=== PATIENT | male | born 1945 | race Caucasian/White ===

== ENCOUNTER 2022-06-23 04:38 | Inpatient (IN) | payer MEDICARE, OTHER ==
[2022-06-23 06:16] LABS: ALT (SGPT) Less than 6 U/L (8-55); AST (SGOT) 18 U/L (5-34); Alkaline Phosphatase 119 U/L (40-110); Anion Gap 12 mmol/L (10-20); BUN (Urea Nitrogen) 22 mg/dL (8.4-25.7); Bilirubin, Total 0.7 mg/dL (0.2-1.2); Calc. Creatinine Clearance 0 mL/min (70-130); Calcium 9.5 mg/dL (7.8-10.44); Carbon Dioxide 26 mmol/L (23-31); Chloride 108 mmol/L (98-107); Estimated GFR 70; Globulin 2.6 g/dL (2.4-3.5); Glucose 122 mg/dL (83-110); Protein, Total 6.6 g/dL (5.8-8.1); Sodium 142 mmol/L (136-145)
[2022-06-23 06:24] LABS: #Eosinphils 0.1 10x3/uL (0.0-0.5); #Monocytes 0.7 10x3/uL (0.0-1.1); #Neutrophils 3.9 10x3/uL (1.5-8.4); %Basophils 0.5 % (0.0-2.0); %Lymphocytes 23.3 % (18.0-47.0); %Monocytes 10.7 % (0.0-10.0); Hemoglobin 10.5 g/dL (13.5-17.5); Mean Corpuscular HGB CONC 32.2 g/dL (32.0-36.0); Mean Corpuscular Hemoglobin 30.1 pg (27.0-33.0); Mean Corpuscular Volume 93.4 fl (81.2-95.1); Platelet Count 130 10x3/uL (150-450); Platelet Morphology Comment Appears Decreased; Red Blood Cell (RBC) Count 3.49 10x6/uL (4.32-5.72); White Blood Cell (WBC) Count 6.1 10x3/uL (3.5-10.5)
[2022-06-23 06:39] LABS: Bilirubin Neg (Negative); Blood, Urine 250 (Negative); Clarity Slightly Cloudy (Clear); Glucose, Urine (Dipstick) Normal (Negative); Ketone, Urine 5 mg/dL (Negative); Leukocyte 25 (Negative); Nitrite Negative (Negative); Protein, Urine (Dipstick) 30 mg/dl (Neg-Trace); Urobilinogen Normal mg/dL (Less than 2)
[2022-06-23 06:41] LABS: SARS-CoV-2 NAA Rapid Test Not Detected (NotDetected)
[2022-06-23 06:44] LABS: RBC/HPF 21-50 HPF (0-3)
[2022-06-23 06:45] LABS: Bacteria/HPF 1+ HPF (None Seen); Calcium Oxalate Crystals 1+ HPF (None Seen); Squamous Epithelial 0-3 HPF (0-3); Transitional Epithelial 0-3 HPF (None Seen); WBC/HPF 0-3 HPF (0-3)
[2022-06-23] MEDS ORDERED: Acetaminophen 650 MG Suppository PR PRN (11:26)
[2022-06-23] MEDS ORDERED: Ondansetron ODT 4 MG TAB PO PRN (11:26)
[2022-06-23] MEDS ORDERED: Ondansetron PF 4 MG/2 ML Vial IVP PRN (11:26)
[2022-06-23] MEDS ORDERED: Senokot S 8.6-50 MG TAB PO PRN (11:26)
[2022-06-23 15:08] VITALS: BMI 18.3
[2022-06-23] MEDS: Carbidopa/Levodopa 10-100 mg Tablet PO SCH ×3 (15:15→22:08)
[2022-06-23] MEDS: Amantadine HCl 100 mg Capsule PO SCH ×2 (15:15→22:09)
[2022-06-23] MEDS: Atorvastatin Calcium 20 MG TAB PO SCH (22:09)
[2022-06-23] MEDS: Tamsulosin HCl 0.4 MG CAP PO SCH (22:10)
[2022-06-23] MEDS: Aspirin 81 mg Enteric Coated Tablet PO SCH (22:10)
[2022-06-23] MEDS: Acetaminophen 325 MG TAB PO PRN (22:19)
[2022-06-24 04:33] LABS: Anion Gap 12 mmol/L (10-20); BUN (Urea Nitrogen) 25 mg/dL (8.4-25.7); Calc. Creatinine Clearance 54 mL/min (70-130); Calcium 9.3 mg/dL (7.8-10.44); Carbon Dioxide 23 mmol/L (23-31); Chloride 109 mmol/L (98-107); Estimated GFR 83; Glucose 96 mg/dL (83-110); Potassium 3.6 mmol/L (3.5-5.1); Sodium 140 mmol/L (136-145)
[2022-06-24 04:35] LABS: #Eosinphils 0.1 10x3/uL (0.0-0.5); #Monocytes 0.8 10x3/uL (0.0-1.1); %Basophils 0.4 % (0.0-2.0); %Lymphocytes 16.8 % (18.0-47.0); %Monocytes 10.8 % (0.0-10.0); %Neutrophils 70.7 % (40.0-75.0); Hemoglobin 10.7 g/dL (13.5-17.5); Mean Corpuscular HGB CONC 32.6 g/dL (32.0-36.0); Mean Corpuscular Hemoglobin 30.5 pg (27.0-33.0); Mean Corpuscular Volume 93.4 fl (81.2-95.1); Mean Platelet Volume 10.3 fl (7.4-10.4); Platelet Count 169 10x3/uL (150-450); RBC Distribution Width 13.7 % (11.5-14.5); Red Blood Cell (RBC) Count 3.51 10x6/uL (4.32-5.72)
[2022-06-24] MEDS: Aspirin 81 mg Enteric Coated Tablet PO SCH ×2 (08:39→21:16)
[2022-06-24] MEDS: Finasteride 5 MG TAB PO SCH (08:39)
[2022-06-24] MEDS: Amantadine HCl 100 mg Capsule PO SCH ×3 (08:40→21:16)
[2022-06-24] MEDS: Carbidopa/Levodopa 10-100 mg Tablet PO SCH ×4 (08:40→21:16)
[2022-06-24] MEDS: Entacapone 200 mg Tablet PO SCH ×3 (12:47→21:16)
[2022-06-24] MEDS: Acetaminophen 325 MG TAB PO PRN (19:40)
[2022-06-24] MEDS: Atorvastatin Calcium 20 MG TAB PO SCH (21:16)
[2022-06-24] MEDS: Tamsulosin HCl 0.4 MG CAP PO SCH (21:16)
[2022-06-25 05:08] LABS: #Eosinphils 0.1 10x3/uL (0.0-0.5); #Monocytes 0.8 10x3/uL (0.0-1.1); #Neutrophils 4.1 10x3/uL (1.5-8.4); %Basophils 0.5 % (0.0-2.0); %Lymphocytes 21.1 % (18.0-47.0); %Monocytes 11.7 % (0.0-10.0); %Neutrophils 64.5 % (40.0-75.0); Hemoglobin 10.9 g/dL (13.5-17.5); Mean Corpuscular HGB CONC 32.4 g/dL (32.0-36.0); Mean Corpuscular Hemoglobin 30.3 pg (27.0-33.0); Mean Corpuscular Volume 93.3 fl (81.2-95.1); Mean Platelet Volume 10.4 fl (7.4-10.4); Platelet Count 161 10x3/uL (150-450); RBC Distribution Width 13.6 % (11.5-14.5); White Blood Cell (WBC) Count 6.4 10x3/uL (3.5-10.5)
[2022-06-25 05:09] LABS: Anion Gap 12 mmol/L (10-20); BUN (Urea Nitrogen) 22 mg/dL (8.4-25.7); Calc. Creatinine Clearance 55 mL/min (70-130); Calcium 9.2 mg/dL (7.8-10.44); Carbon Dioxide 24 mmol/L (23-31); Chloride 106 mmol/L (98-107); Estimated GFR 84; Glucose 113 mg/dL (83-110); Potassium 3.6 mmol/L (3.5-5.1); Sodium 138 mmol/L (136-145)
[2022-06-25] MEDS: Aspirin 81 mg Enteric Coated Tablet PO SCH ×2 (07:58→21:24)
[2022-06-25] MEDS: Amantadine HCl 100 mg Capsule PO SCH ×3 (07:58→21:24)
[2022-06-25] MEDS: Finasteride 5 MG TAB PO SCH (07:58)
[2022-06-25] MEDS: Entacapone 200 mg Tablet PO SCH ×4 (09:53→21:24)
[2022-06-25] MEDS: Carbidopa/Levodopa 10-100 mg Tablet PO SCH ×4 (09:53→21:24)
[2022-06-25] MEDS: Atorvastatin Calcium 20 MG TAB PO SCH (21:24)
[2022-06-25] MEDS: Tamsulosin HCl 0.4 MG CAP PO SCH (21:24)
[2022-06-25] MEDS: Acetaminophen 325 MG TAB PO PRN ×2 (22:34→22:42)
[2022-06-25] MEDS ORDERED: Lactated Ringer's 1,000 ML IV SCH (23:00)
[2022-06-25 23:12] LABS: #Monocytes 0.1 10x3/uL (0.0-1.1); #Neutrophils 5.9 10x3/uL (1.5-8.4); %Basophils 0.2 % (0.0-2.0); %Eosinophils 0.5 % (0.0-6.0); %Lymphocytes 4.9 % (18.0-47.0); %Monocytes 0.9 % (0.0-10.0); %Neutrophils 93.2 % (40.0-75.0); Hemoglobin 11.2 g/dL (13.5-17.5); Mean Corpuscular HGB CONC 33.4 g/dL (32.0-36.0); Mean Corpuscular Hemoglobin 30.6 pg (27.0-33.0); Mean Corpuscular Volume 91.5 fl (81.2-95.1); Mean Platelet Volume 10.1 fl (7.4-10.4); Platelet Count 156 10x3/uL (150-450); RBC Distribution Width 13.5 % (11.5-14.5); Red Blood Cell (RBC) Count 3.66 10x6/uL (4.32-5.72); White Blood Cell (WBC) Count 6.4 10x3/uL (3.5-10.5)
[2022-06-25 23:26] LABS: ALT (SGPT) 9 U/L (8-55); AST (SGOT) 18 U/L (5-34); Alkaline Phosphatase 113 U/L (40-110); Anion Gap 15 mmol/L (10-20); BUN (Urea Nitrogen) 21 mg/dL (8.4-25.7); Bilirubin, Total 1.2 mg/dL (0.2-1.2); Calc. Creatinine Clearance 41 mL/min (70-130); Calcium 9.4 mg/dL (7.8-10.44); Carbon Dioxide 24 mmol/L (23-31); Chloride 103 mmol/L (98-107); Estimated GFR 60; Globulin 2.8 g/dL (2.4-3.5); Glucose 141 mg/dL (83-110); Magnesium 1.4 mg/dL (1.6-2.6); Potassium 3.6 mmol/L (3.5-5.1); Protein, Total 6.8 g/dL (5.8-8.1); Sodium 138 mmol/L (136-145)
[2022-06-26] MEDS ORDERED: Magnesium 2 GM/50 ML(in water) 2 GM in Premix Bag 1 BAG IVPB SCH (00:15)
[2022-06-26 05:23] LABS: Anion Gap 13 mmol/L (10-20); BUN (Urea Nitrogen) 21 mg/dL (8.4-25.7); Calc. Creatinine Clearance 42 mL/min (70-130); Calcium 9.5 mg/dL (7.8-10.44); Carbon Dioxide 25 mmol/L (23-31); Chloride 104 mmol/L (98-107); Estimated GFR 61; Glucose 158 mg/dL (83-110); Potassium 3.4 mmol/L (3.5-5.1); Sodium 139 mmol/L (136-145)
[2022-06-26 05:25] LABS: #Monocytes 0.8 10x3/uL (0.0-1.1); #Neutrophils 12.7 10x3/uL (1.5-8.4); %Basophils 0.1 % (0.0-2.0); %Eosinophils 0.1 % (0.0-6.0); %Lymphocytes 2.1 % (18.0-47.0); %Monocytes 5.9 % (0.0-10.0); %Neutrophils 90.9 % (40.0-75.0); Hemoglobin 10.7 g/dL (13.5-17.5); Mean Corpuscular HGB CONC 33.3 g/dL (32.0-36.0); Mean Corpuscular Hemoglobin 30.8 pg (27.0-33.0); Mean Corpuscular Volume 92.5 fl (81.2-95.1); Mean Platelet Volume 10.5 fl (7.4-10.4); Platelet Count 172 10x3/uL (150-450); RBC Distribution Width 13.6 % (11.5-14.5); Red Blood Cell (RBC) Count 3.47 10x6/uL (4.32-5.72)
[2022-06-26] MEDS ORDERED: Potassium Chloride 20 MEQ TAB PO SCH (06:00)
[2022-06-26 06:15] LABS: SARS-CoV-2 NAA Rapid Test Not Detected (NotDetected)
[2022-06-26] MEDS: cefTRIAXone\\ROCEPHIN 1 GM in Sodium Chloride 0.9% 100 ML IVPB SCH (07:00)
[2022-06-26 07:39] LABS: Bilirubin Neg (Negative); Blood, Urine 10 (Negative); Clarity Clear (Clear); Glucose, Urine (Dipstick) Normal (Negative); Ketone, Urine Negative (Negative); Leukocyte 100 (Negative); Nitrite Negative (Negative); Protein, Urine (Dipstick) Negative (Neg-Trace); Urobilinogen Normal mg/dL (Less than 2)
[2022-06-26] MEDS ORDERED: Electrolyte Replacement Protocol 1 EACH FS SCH (07:45)
[2022-06-26 08:15] LABS: Bacteria/HPF Rare-Few HPF (None Seen); RBC/HPF 0-3 HPF (0-3); Squamous Epithelial 0-3 HPF (0-3)
[2022-06-26 09:33] LABS: Magnesium 2.1 mg/dL (1.6-2.6)
[2022-06-26] MEDS: Aspirin 81 mg Enteric Coated Tablet PO SCH ×2 (09:44→21:40)
[2022-06-26] MEDS: Entacapone 200 mg Tablet PO SCH ×4 (09:44→21:40)
[2022-06-26] MEDS: Finasteride 5 MG TAB PO SCH (09:44)
[2022-06-26] MEDS: Amantadine HCl 100 mg Capsule PO SCH ×3 (09:44→21:40)
[2022-06-26] MEDS: Carbidopa/Levodopa 10-100 mg Tablet PO SCH ×4 (10:30→21:41)
[2022-06-26] MEDS ORDERED: Vancomycin 1 GM in Premix Bag 1 BAG IVPB SCH (11:15)
[2022-06-26] MEDS ORDERED: Vancomycin HCl 1 GM in Sodium Chloride 0.9% 250 ML 250 ML IVPB SCH (11:30)
[2022-06-26] MEDS: Tamsulosin HCl 0.4 MG CAP PO SCH (21:40)
[2022-06-26] MEDS: Atorvastatin Calcium 20 MG TAB PO SCH (21:40)
[2022-06-27] MEDS ORDERED: Haloperidol Lactate 5 MG/ML VIAL IM SCH (05:15)
[2022-06-27 06:14] LABS: #Monocytes 0.5 10x3/uL (0.0-1.1); #Neutrophils 4.3 10x3/uL (1.5-8.4); %Basophils 0.5 % (0.0-2.0); %Eosinophils 0.7 % (0.0-6.0); %Lymphocytes 11.8 % (18.0-47.0); %Monocytes 8.5 % (0.0-10.0); %Neutrophils 78.1 % (40.0-75.0); Hemoglobin 10.4 g/dL (13.5-17.5); Mean Corpuscular HGB CONC 33.3 g/dL (32.0-36.0); Mean Corpuscular Hemoglobin 30.2 pg (27.0-33.0); Mean Corpuscular Volume 90.7 fl (81.2-95.1); Mean Platelet Volume 10.6 fl (7.4-10.4); Platelet Count 130 10x3/uL (150-450); RBC Distribution Width 13.5 % (11.5-14.5); Red Blood Cell (RBC) Count 3.44 10x6/uL (4.32-5.72); White Blood Cell (WBC) Count 5.5 10x3/uL (3.5-10.5)
[2022-06-27 06:28] LABS: Anion Gap 15 mmol/L (10-20); BUN (Urea Nitrogen) 21 mg/dL (8.4-25.7); Calc. Creatinine Clearance 45 mL/min (70-130); Calcium 9.3 mg/dL (7.8-10.44); Carbon Dioxide 21 mmol/L (23-31); Chloride 106 mmol/L (98-107); Estimated GFR 67; Glucose 102 mg/dL (83-110); Sodium 138 mmol/L (136-145)
[2022-06-27] MEDS: cefTRIAXone\\ROCEPHIN 1 GM in Sodium Chloride 0.9% 100 ML IVPB SCH (06:42)
[2022-06-27] MEDS: Finasteride 5 MG TAB PO SCH (10:44)
[2022-06-27] MEDS: Amantadine HCl 100 mg Capsule PO SCH ×3 (10:44→21:23)
[2022-06-27] MEDS: Aspirin 81 mg Enteric Coated Tablet PO SCH ×2 (10:44→21:23)
[2022-06-27] MEDS: Saccharomyces boulardii 250 MG CAP PO SCH (10:45)
[2022-06-27] MEDS: Entacapone 200 mg Tablet PO SCH ×4 (10:45→21:24)
[2022-06-27] MEDS: Carbidopa/Levodopa 10-100 mg Tablet PO SCH ×4 (11:15→21:23)
[2022-06-27] MEDS ORDERED: Vancomycin HCl 750 MG in Sodium Chloride 0.9% 250 ML 250 ML IVPB SCH (11:30)
[2022-06-27] MEDS: Tamsulosin HCl 0.4 MG CAP PO SCH (21:23)
[2022-06-27] MEDS: Atorvastatin Calcium 20 MG TAB PO SCH (21:23)
[2022-06-28 06:07] LABS: #Eosinphils 0.1 10x3/uL (0.0-0.5); #Monocytes 0.7 10x3/uL (0.0-1.1); #Neutrophils 3.7 10x3/uL (1.5-8.4); %Basophils 0.6 % (0.0-2.0); %Eosinophils 1.7 % (0.0-6.0); %Lymphocytes 17.3 % (18.0-47.0); %Monocytes 12.1 % (0.0-10.0); %Neutrophils 67.9 % (40.0-75.0); Hemoglobin 10.9 g/dL (13.5-17.5); Mean Corpuscular HGB CONC 33.6 g/dL (32.0-36.0); Mean Corpuscular Hemoglobin 30.5 pg (27.0-33.0); Mean Corpuscular Volume 90.8 fl (81.2-95.1); Mean Platelet Volume 11.1 fl (7.4-10.4); Platelet Count 150 10x3/uL (150-450); RBC Distribution Width 13.2 % (11.5-14.5); Red Blood Cell (RBC) Count 3.57 10x6/uL (4.32-5.72); White Blood Cell (WBC) Count 5.4 10x3/uL (3.5-10.5)
[2022-06-28 06:18] LABS: Anion Gap 14 mmol/L (10-20); BUN (Urea Nitrogen) 17 mg/dL (8.4-25.7); Calc. Creatinine Clearance 45 mL/min (70-130); Calcium 9.5 mg/dL (7.8-10.44); Carbon Dioxide 23 mmol/L (23-31); Chloride 107 mmol/L (98-107); Estimated GFR 67; Glucose 101 mg/dL (83-110); Magnesium 1.9 mg/dL (1.6-2.6); Phosphorus 3.5 mg/dL (2.3-4.7); Potassium 3.8 mmol/L (3.5-5.1); Sodium 140 mmol/L (136-145)
[2022-06-28] MEDS: cefTRIAXone\\ROCEPHIN 1 GM in Sodium Chloride 0.9% 100 ML IVPB SCH (06:47)
[2022-06-28] MEDS: Carbidopa/Levodopa 10-100 mg Tablet PO SCH ×4 (09:56→20:59)
[2022-06-28] MEDS: Entacapone 200 mg Tablet PO SCH ×3 (09:57→17:26)
[2022-06-28] MEDS: Amantadine HCl 100 mg Capsule PO SCH ×2 (09:57→17:27)
[2022-06-28] MEDS: Aspirin 81 mg Enteric Coated Tablet PO SCH (09:57)
[2022-06-28] MEDS: Finasteride 5 MG TAB PO SCH (09:57)
[2022-06-28 11:14] LABS: Vancomycin, Trough 5.7 ug/mL
[2022-06-28] MEDS: Saccharomyces boulardii 250 MG CAP PO SCH (11:24)
[2022-06-28] MEDS ORDERED: Magnesium 2 GM/50 ML(in water) 2 GM in Premix Bag 1 BAG IVPB SCH (14:00)
[2022-06-28] MEDS ORDERED: Magnesium Oxide 400 MG TAB PO SCH (17:15)
[2022-06-28] MEDS: Melatonin 3 MG TAB PO SCH (20:59)
[2022-06-28] MEDS: Atorvastatin Calcium 20 MG TAB PO SCH (20:59)
[2022-06-28] MEDS: Tamsulosin HCl 0.4 MG CAP PO SCH (20:59)
[2022-06-29] MEDS: Vancomycin HCl 750 MG in Sodium Chloride 0.9% 250 ML 250 ML IVPB SCH ×3 (00:18→23:12)
[2022-06-29] MEDS: cefTRIAXone\\ROCEPHIN 1 GM in Sodium Chloride 0.9% 100 ML IVPB SCH (05:56)
[2022-06-29 06:06] LABS: Anion Gap 15 mmol/L (10-20); BUN (Urea Nitrogen) 20 mg/dL (8.4-25.7); Calc. Creatinine Clearance 46 mL/min (70-130); Calcium 9.3 mg/dL (7.8-10.44); Carbon Dioxide 23 mmol/L (23-31); Chloride 107 mmol/L (98-107); Estimated GFR 69; Glucose 112 mg/dL (83-110); Magnesium 1.9 mg/dL (1.6-2.6); Potassium 3.4 mmol/L (3.5-5.1); Sodium 142 mmol/L (136-145)
[2022-06-29 06:32] LABS: #Monocytes 0.6 10x3/uL (0.0-1.1); #Neutrophils 2.9 10x3/uL (1.5-8.4); %Basophils 0.6 % (0.0-2.0); %Eosinophils 0.8 % (0.0-6.0); %Lymphocytes 27.8 % (18.0-47.0); %Monocytes 11.6 % (0.0-10.0); %Neutrophils 58.8 % (40.0-75.0); Hemoglobin 10.5 g/dL (13.5-17.5); Mean Corpuscular HGB CONC 33.2 g/dL (32.0-36.0); Mean Corpuscular Hemoglobin 30.2 pg (27.0-33.0); Mean Corpuscular Volume 90.8 fl (81.2-95.1); Mean Platelet Volume 10.7 fl (7.4-10.4); Platelet Count 157 10x3/uL (150-450); RBC Distribution Width 13.2 % (11.5-14.5); Red Blood Cell (RBC) Count 3.48 10x6/uL (4.32-5.72); White Blood Cell (WBC) Count 4.9 10x3/uL (3.5-10.5)
[2022-06-29] MEDS ORDERED: Potassium Chloride 20 MEQ TAB PO SCH (08:00)
[2022-06-29] MEDS ORDERED: Magnesium 2 GM/50 ML(in water) 2 GM in Premix Bag 1 BAG IVPB SCH (08:00)
[2022-06-29] MEDS: Finasteride 5 MG TAB PO SCH (09:46)
[2022-06-29] MEDS: Entacapone 200 mg Tablet PO SCH (09:47)
[2022-06-29] MEDS: Saccharomyces boulardii 250 MG CAP PO SCH (09:47)
[2022-06-29] MEDS: Aspirin 81 mg Enteric Coated Tablet PO SCH (09:47)
[2022-06-29] MEDS: Carbidopa/Levodopa 10-100 mg Tablet PO SCH ×4 (09:47→23:02)
[2022-06-29] MEDS: D5 1/2 NS w/20 mEq KCL 1,000 ML IV SCH (12:50)
[2022-06-29] MEDS: Tamsulosin HCl 0.4 MG CAP PO SCH (23:02)
[2022-06-29] MEDS: Atorvastatin Calcium 20 MG TAB PO SCH (23:02)
[2022-06-29] MEDS: Melatonin 3 MG TAB PO SCH (23:03)
[2022-06-30 00:52] LABS: Vancomycin, Trough 26.7 ug/mL
[2022-06-30] MEDS ORDERED: D5 1/2 NS w/20 mEq KCL 1,000 ML ONE (02:25)
[2022-06-30] MEDS: D5 1/2 NS w/20 mEq KCL 1,000 ML IV SCH ×2 (02:27→14:18)
[2022-06-30] MEDS: cefTRIAXone\\ROCEPHIN 1 GM in Sodium Chloride 0.9% 100 ML IVPB SCH (05:03)
[2022-06-30 06:29] LABS: #Eosinphils 0.1 10x3/uL (0.0-0.5); #Monocytes 0.7 10x3/uL (0.0-1.1); #Neutrophils 2.4 10x3/uL (1.5-8.4); %Basophils 0.8 % (0.0-2.0); %Eosinophils 2.1 % (0.0-6.0); %Lymphocytes 36.1 % (18.0-47.0); %Monocytes 13.7 % (0.0-10.0); %Neutrophils 46.7 % (40.0-75.0); Hemoglobin 10.8 g/dL (13.5-17.5); Mean Corpuscular HGB CONC 32.3 g/dL (32.0-36.0); Mean Corpuscular Hemoglobin 29.9 pg (27.0-33.0); Mean Corpuscular Volume 92.5 fl (81.2-95.1); Mean Platelet Volume 12.1 fl (7.4-10.4); Platelet Count 137 10x3/uL (150-450); RBC Distribution Width 13.4 % (11.5-14.5); Red Blood Cell (RBC) Count 3.61 10x6/uL (4.32-5.72); White Blood Cell (WBC) Count 5.1 10x3/uL (3.5-10.5)
[2022-06-30 06:33] LABS: CRP (Inflammatory) 0.94 mg/dL (= or < 0.5); Phosphorus 3.2 mg/dL (2.3-4.7)
[2022-06-30 06:42] LABS: ALT (SGPT) 8 U/L (8-55); AST (SGOT) 28 U/L (5-34); Albumin 3.6 g/dL (3.4-4.8); Alkaline Phosphatase 96 U/L (40-110); Anion Gap 14 mmol/L (10-20); BUN (Urea Nitrogen) 16 mg/dL (8.4-25.7); Bilirubin, Total 0.5 mg/dL (0.2-1.2); Calc. Creatinine Clearance 45 mL/min (70-130); Calcium 8.8 mg/dL (7.8-10.44); Carbon Dioxide 23 mmol/L (23-31); Chloride 107 mmol/L (98-107); Estimated GFR 66; Globulin 2.8 g/dL (2.4-3.5); Glucose 121 mg/dL (83-110); Magnesium 2.1 mg/dL (1.6-2.6); Potassium 4.9 mmol/L (3.5-5.1); Protein, Total 6.4 g/dL (5.8-8.1); Sodium 139 mmol/L (136-145)
[2022-06-30 06:48] LABS: Platelet Morphology Comment Appears Adequate; RBC Morphology Normal
[2022-06-30] MEDS: Saccharomyces boulardii 250 MG CAP PO SCH (07:49)
[2022-06-30] MEDS: Carbidopa/Levodopa 10-100 mg Tablet PO SCH ×4 (07:49→22:00)
[2022-06-30] MEDS: Finasteride 5 MG TAB PO SCH (07:49)
[2022-06-30] MEDS: Aspirin 81 mg Enteric Coated Tablet PO SCH (07:49)
[2022-06-30 11:43] LABS: Vancomycin, Trough 8.9 ug/mL
[2022-06-30] MEDS: Vancomycin HCl 750 MG in Sodium Chloride 0.9% 250 ML 250 ML IVPB SCH (14:18)
[2022-06-30] MEDS: Entacapone 200 mg Tablet PO SCH ×2 (16:41→23:14)
[2022-06-30] MEDS: Bisacodyl 10 MG SUPP PR SCH (21:59)
[2022-06-30] MEDS: Melatonin 3 MG TAB PO SCH (22:00)
[2022-06-30] MEDS: Tamsulosin HCl 0.4 MG CAP PO SCH (22:00)
[2022-06-30] MEDS: Atorvastatin Calcium 20 MG TAB PO SCH (22:00)
[2022-06-30] MEDS: Amoxicillin/Potassium Clav 875 MG TAB PO SCH (22:00)
[2022-06-30] MEDS: Senokot S 8.6-50 MG TAB PO SCH (22:01)
[2022-07-01] MEDS: Carbidopa/Levodopa 10-100 mg Tablet PO SCH ×4 (12:27→21:33)
[2022-07-01] MEDS: Aspirin 81 mg Enteric Coated Tablet PO SCH (12:27)
[2022-07-01] MEDS: Finasteride 5 MG TAB PO SCH (12:27)
[2022-07-01] MEDS: Entacapone 200 mg Tablet PO SCH ×4 (12:27→21:33)
[2022-07-01] MEDS: Amoxicillin/Potassium Clav 875 MG TAB PO SCH ×2 (12:27→21:34)
[2022-07-01] MEDS: Senokot S 8.6-50 MG TAB PO SCH ×2 (12:28→21:32)
[2022-07-01] MEDS: Polyethylene Glycol 3350 17 GM Packet PO SCH (12:28)
[2022-07-01] MEDS: Saccharomyces boulardii 250 MG CAP PO SCH (17:38)
[2022-07-01] MEDS: Bisacodyl 10 MG SUPP PR SCH (21:32)
[2022-07-01] MEDS: Melatonin 3 MG TAB PO SCH (21:33)
[2022-07-01] MEDS: Atorvastatin Calcium 20 MG TAB PO SCH (21:33)
[2022-07-01] MEDS: Tamsulosin HCl 0.4 MG CAP PO SCH (21:33)
[2022-07-02 06:13] LABS: Anion Gap 13 mmol/L (10-20); BUN (Urea Nitrogen) 14 mg/dL (8.4-25.7); Calc. Creatinine Clearance 45 mL/min (70-130); Calcium 9.6 mg/dL (7.8-10.44); Carbon Dioxide 26 mmol/L (23-31); Chloride 105 mmol/L (98-107); Estimated GFR 67; Glucose 112 mg/dL (83-110); Sodium 140 mmol/L (136-145)
[2022-07-02 06:19] LABS: #Eosinphils 0.2 10x3/uL (0.0-0.5); #Monocytes 0.8 10x3/uL (0.0-1.1); #Neutrophils 3.1 10x3/uL (1.5-8.4); %Basophils 0.5 % (0.0-2.0); %Eosinophils 2.8 % (0.0-6.0); %Lymphocytes 32.1 % (18.0-47.0); %Neutrophils 50.1 % (40.0-75.0); Hemoglobin 12.3 g/dL (13.5-17.5); Mean Corpuscular HGB CONC 32.5 g/dL (32.0-36.0); Mean Corpuscular Hemoglobin 29.6 pg (27.0-33.0); Mean Corpuscular Volume 90.9 fl (81.2-95.1); Mean Platelet Volume 10.4 fl (7.4-10.4); Platelet Count 210 10x3/uL (150-450); RBC Distribution Width 13.4 % (11.5-14.5); Red Blood Cell (RBC) Count 4.16 10x6/uL (4.32-5.72); White Blood Cell (WBC) Count 6.1 10x3/uL (3.5-10.5)
[2022-07-02] MEDS ORDERED: Lisinopril 10 MG TAB PO SCH (09:15)
[2022-07-02] MEDS: Carbidopa/Levodopa 10-100 mg Tablet PO SCH ×4 (10:04→22:41)
[2022-07-02] MEDS: Aspirin 81 mg Enteric Coated Tablet PO SCH (10:04)
[2022-07-02] MEDS: Finasteride 5 MG TAB PO SCH (10:04)
[2022-07-02] MEDS: Polyethylene Glycol 3350 17 GM Packet PO SCH (10:05)
[2022-07-02] MEDS: Senokot S 8.6-50 MG TAB PO SCH ×2 (10:10→22:50)
[2022-07-02] MEDS: Amoxicillin/Potassium Clav 875 MG TAB PO SCH ×2 (10:10→22:50)
[2022-07-02] MEDS: Entacapone 200 mg Tablet PO SCH ×4 (10:17→22:41)
[2022-07-02] MEDS: Saccharomyces boulardii 250 MG CAP PO SCH (14:14)
[2022-07-02] MEDS ORDERED: Heparin 5,000 UNITS/ML VIAL SC SCH (21:00)
[2022-07-02] MEDS: Tamsulosin HCl 0.4 MG CAP PO SCH (22:41)
[2022-07-02] MEDS: Melatonin 3 MG TAB PO SCH (22:41)
[2022-07-02] MEDS: Atorvastatin Calcium 20 MG TAB PO SCH (22:41)
[2022-07-02] MEDS: Bisacodyl 10 MG SUPP PR SCH (22:50)
[2022-07-02] MEDS ORDERED: Lorazepam 2 MG/ML VIAL SLOW IVP SCH (23:30)
[2022-07-03] MEDS ORDERED: Lisinopril 10 MG TAB PO SCH (09:00)
[2022-07-03] MEDS: Amoxicillin/Potassium Clav 875 MG TAB PO SCH (09:20)
[2022-07-03] MEDS: Carbidopa/Levodopa 10-100 mg Tablet PO SCH ×3 (09:20→17:25)
[2022-07-03] MEDS: Aspirin 81 mg Enteric Coated Tablet PO SCH (09:20)
[2022-07-03] MEDS: Entacapone 200 mg Tablet PO SCH ×3 (09:20→18:25)
[2022-07-03] MEDS: Senokot S 8.6-50 MG TAB PO SCH (09:21)
[2022-07-03] MEDS: Polyethylene Glycol 3350 17 GM Packet PO SCH (09:21)
[2022-07-03] MEDS: Finasteride 5 MG TAB PO SCH (09:21)
[2022-07-03] MEDS: Saccharomyces boulardii 250 MG CAP PO SCH (14:57)
[2022-07-03 17:22] VITALS: BP 133/82; TEMP 98.4
[2022-07-04] MEDS ORDERED: Amantadine HCl 100 mg Capsule PO SCH (09:00)
== END 2022-07-03 21:45 | DRG 871 ==
LOC: CSHERS 04:38 → CSHTELE 12:42 → OBSVTOIN 12:42 → INTOOBSV 12:42 → OBSVTOIN 06-26 08:19
PROVIDERS: ADMIT Internal Medicine; ATTEND Internal Medicine
DX: A41.1 Sepsis due to other specified staphylococcus (principal); G93.41 Metabolic encephalopathy; J18.9 Pneumonia, unspecified organism; J69.0 Pneumonitis due to inhalation of food and vomit; N30.00 Acute cystitis without hematuria; Z51.5 Encounter for palliative care; R65.20 Severe sepsis without septic shock; E78.5 Hyperlipidemia, unspecified; K21.9 Gastro-esophageal reflux disease without esophagitis; G20 Parkinson's disease; N40.0 Benign prostatic hyperplasia without lower urinary tract symptoms; Z96.1 Presence of intraocular lens; F17.210 Nicotine dependence, cigarettes, uncomplicated; I12.9 Hypertensive chronic kidney disease with stage 1 through stage 4 chronic kidney disease, or unspecified chronic kidney disease; R53.1 Weakness; E87.6 Hypokalemia; Z96.651 Presence of right artificial knee joint; F32.A Depression, unspecified; R29.6 Repeated falls; Z20.822 Contact with and (suspected) exposure to COVID-19; N18.2 Chronic kidney disease, stage 2 (mild); D63.1 Anemia in chronic kidney disease; D69.6 Thrombocytopenia, unspecified; E83.42 Hypomagnesemia; Z79.899 Other long term (current) drug therapy; Z98.42 Cataract extraction status, left eye; Z80.0 Family history of malignant neoplasm of digestive organs; Z98.890 Other specified postprocedural states; Z79.82 Long term (current) use of aspirin; Z86.73 Personal history of transient ischemic attack (TIA), and cerebral infarction without residual deficits; Z98.41 Cataract extraction status, right eye; F02.80 Dementia in other diseases classified elsewhere, unspecified severity, without behavioral disturbance, psychotic disturbance, mood disturbance, and anxiety; L21.9 Seborrheic dermatitis, unspecified; R07.81 Pleurodynia
CPT/HCPCS: 36415; 36416; 51701; 70450; 71045; 71046; 72125; 80048; 80053; 80202; 81001; 81003; 81015; 83605; 83735; 84100; 84484; 85025; 86140; 87040; 87070; 87077; 87086; 87149; 87186; 87205; 93005; 93010; 96372; 96374; 96375; G0378; J0696; J1650; J2060; J3370; J3475; J3480; J3490; J7050; J7120; U0002

== ENCOUNTER 2022-07-07 17:20 | Emergency (ER) | payer MEDICARE, OTHER ==
[2022-07-07 17:46] LABS: #Eosinphils 0.1 10x3/uL (0.0-0.5); #Monocytes 0.8 10x3/uL (0.0-1.1); #Neutrophils 4.9 10x3/uL (1.5-8.4); %Basophils 0.4 % (0.0-2.0); %Eosinophils 1.1 % (0.0-6.0); %Lymphocytes 20.9 % (18.0-47.0); %Neutrophils 65.8 % (40.0-75.0); Hemoglobin 10.5 g/dL (13.5-17.5); Mean Corpuscular HGB CONC 31.8 g/dL (32.0-36.0); Mean Corpuscular Hemoglobin 29.6 pg (27.0-33.0); Platelet Count 242 10x3/uL (150-450); RBC Distribution Width 14.1 % (11.5-14.5); Red Blood Cell (RBC) Count 3.55 10x6/uL (4.32-5.72); White Blood Cell (WBC) Count 7.5 10x3/uL (3.5-10.5)
[2022-07-07 17:57] LABS: ALT (SGPT) 8 U/L (8-55); AST (SGOT) 15 U/L (5-34); Alkaline Phosphatase 115 U/L (40-110); Anion Gap 12 mmol/L (10-20); BUN (Urea Nitrogen) 24 mg/dL (8.4-25.7); Bilirubin, Total 0.7 mg/dL (0.2-1.2); Calc. Creatinine Clearance 0 mL/min (70-130); Calcium 8.9 mg/dL (7.8-10.44); Carbon Dioxide 27 mmol/L (23-31); Chloride 103 mmol/L (98-107); Estimated GFR 70; Globulin 2.5 g/dL (2.4-3.5); Glucose 118 mg/dL (83-110); Potassium 3.6 mmol/L (3.5-5.1); Protein, Total 6.5 g/dL (5.8-8.1); Sodium 138 mmol/L (136-145)
[2022-07-07 18:47] LABS: Bilirubin Neg (Negative); Blood, Urine Negative (Negative); Clarity Clear (Clear); Glucose, Urine (Dipstick) Normal (Negative); Ketone, Urine Negative (Negative); Leukocyte 25 (Negative); Nitrite Negative (Negative); Protein, Urine (Dipstick) Negative (Neg-Trace); Urobilinogen Normal mg/dL (Less than 2); pH, Urine 6.5 (5.0-9.0)
[2022-07-07 19:02] LABS: Bacteria/HPF None Seen HPF (None Seen); RBC/HPF 0-3 HPF (0-3); Squamous Epithelial 0-3 HPF (0-3); WBC/HPF 0-3 HPF (0-3)
== END 2022-07-07 20:06 | disposition home or self-care (01) ==
LOC: CSHERS 17:20
DX: R44.3 Hallucinations, unspecified (principal); I10 Essential (primary) hypertension; K21.9 Gastro-esophageal reflux disease without esophagitis; E78.00 Pure hypercholesterolemia, unspecified
CPT/HCPCS: 36415; 80053; 81003; 81015; 83605; 85025; 99285

== ENCOUNTER 2022-12-15 10:05 | Inpatient (IN) | payer OTHER, MEDICARE ==
[~2022-12-15 10:05] MED LIST: Fluticasone Propionate Nasal Spray 16 gm Bottle NASAL PRN
[2022-12-15 10:28] LABS: #Eosinphils 0.1 10x3/uL (0.0-0.5); #Monocytes 0.7 10x3/uL (0.0-1.1); %Basophils 0.5 % (0.0-2.0); %Eosinophils 1.9 % (0.0-6.0); %Lymphocytes 22.9 % (18.0-47.0); %Monocytes 11.4 % (0.0-10.0); %Neutrophils 63.1 % (40.0-75.0); Hematocrit 40.7 % (38.8-50.0); Mean Corpuscular HGB CONC 31.9 g/dL (32.0-36.0); Mean Corpuscular Hemoglobin 31.2 pg (27.0-33.0); Mean Corpuscular Volume 97.6 fl (81.2-95.1); Mean Platelet Volume 10.5 fl (7.4-10.4); Platelet Count 180 10x3/uL (150-450); RBC Distribution Width 12.8 % (11.5-14.5); Red Blood Cell (RBC) Count 4.17 10x6/uL (4.32-5.72); White Blood Cell (WBC) Count 6.3 10x3/uL (3.5-10.5)
[2022-12-15 10:40] LABS: INR-International Normal Ratio 1.1; PTT 31.8 sec (22.0-33.0); Prothrombin Time 11.6 sec (9.5-12.1)
[2022-12-15 10:42] LABS: ALT (SGPT) 9 U/L (8-55); AST (SGOT) 21 U/L (5-34); Albumin 4.6 g/dL (3.4-4.8); Alkaline Phosphatase 99 U/L (40-110); Anion Gap 17 mmol/L (10-20); BUN (Urea Nitrogen) 14 mg/dL (8.4-25.7); Bilirubin, Total 1.6 mg/dL (0.2-1.2); Calc. Creatinine Clearance 0 mL/min (70-130); Calcium 9.5 mg/dL (7.8-10.44); Carbon Dioxide 24 mmol/L (23-31); Chloride 106 mmol/L (98-107); Estimated GFR 62; Globulin 2.6 g/dL (2.4-3.5); Glucose 114 mg/dL (83-110); Protein, Total 7.2 g/dL (5.8-8.1); Sodium 143 mmol/L (136-145)
[2022-12-15] MEDS ORDERED: hydrALAZINE 20 MG/ML VIAL ONE (11:05)
[2022-12-15] MEDS ORDERED: Lisinopril 10 MG TAB ONE (11:05)
[2022-12-15] MEDS ORDERED: Aspirin Chewable 81 MG TAB ONE (12:06)
[2022-12-15] MEDS ORDERED: HYDROcodone/Acetaminophen 7.5/325 mg Tablet PO PRN (13:45)
[2022-12-15] MEDS ORDERED: HYDROcodone/Acetaminophen 5/325 mg Tablet PO PRN (13:45)
[2022-12-15] MEDS ORDERED: Acetaminophen 325 MG TAB PO PRN (13:45)
[2022-12-15] MEDS ORDERED: Ondansetron PF 4 MG/2 ML Vial IVP PRN (13:45)
[2022-12-15] MEDS ORDERED: Diclofenac 1% 100 GM GEL TP PRN (13:51)
[2022-12-15] MEDS: Entacapone 200 mg Tablet PO SCH ×2 (18:13→23:31)
[2022-12-15] MEDS: Carbidopa/Levodopa 25-100 mg Tablet PO SCH ×2 (18:13→23:31)
[2022-12-15] MEDS: Tamsulosin HCl 0.4 MG CAP PO SCH (20:57)
[2022-12-15] MEDS: Famotidine/PF 20 mg/2ml Vial SLOW IVP SCH (20:58)
[2022-12-15] MEDS: Senokot S 8.6-50 MG TAB PO SCH (21:06)
[2022-12-15 23:39] VITALS: BMI 24.4
[2022-12-16 05:15] LABS: #Eosinphils 0.1 10x3/uL (0.0-0.5); #Monocytes 0.8 10x3/uL (0.0-1.1); #Neutrophils 4.1 10x3/uL (1.5-8.4); %Basophils 0.6 % (0.0-2.0); %Eosinophils 1.6 % (0.0-6.0); %Monocytes 11.9 % (0.0-10.0); %Neutrophils 64.7 % (40.0-75.0); Hematocrit 41.3 % (38.8-50.0); Hemoglobin 13.5 g/dL (13.5-17.5); Mean Corpuscular HGB CONC 32.7 g/dL (32.0-36.0); Mean Corpuscular Hemoglobin 31.3 pg (27.0-33.0); Mean Corpuscular Volume 95.6 fl (81.2-95.1); Mean Platelet Volume 10.9 fl (7.4-10.4); Platelet Count 171 10x3/uL (150-450); RBC Distribution Width 12.8 % (11.5-14.5); Red Blood Cell (RBC) Count 4.32 10x6/uL (4.32-5.72); White Blood Cell (WBC) Count 6.4 10x3/uL (3.5-10.5)
[2022-12-16 05:27] LABS: Anion Gap 14 mmol/L (10-20); BUN (Urea Nitrogen) 14 mg/dL (8.4-25.7); Calc. Creatinine Clearance 57 mL/min (70-130); Calcium 9.4 mg/dL (7.8-10.44); Carbon Dioxide 25 mmol/L (23-31); Chloride 105 mmol/L (98-107); Estimated GFR 65; Glucose 103 mg/dL (83-110); Potassium 3.6 mmol/L (3.5-5.1); Sodium 140 mmol/L (136-145)
[2022-12-16] MEDS: Ferrous Gluconate 324 MG TAB PO SCH (08:03)
[2022-12-16] MEDS: Aspirin 81 mg Enteric Coated Tablet PO SCH (08:03)
[2022-12-16] MEDS: Carbidopa/Levodopa 25-100 mg Tablet PO SCH ×4 (08:03→21:43)
[2022-12-16] MEDS: Lisinopril 10 MG TAB PO SCH (08:04)
[2022-12-16] MEDS: Finasteride 5 MG TAB PO SCH (08:04)
[2022-12-16] MEDS: Amantadine HCl 100 mg Capsule PO SCH (08:04)
[2022-12-16] MEDS: Cyanocobalamin (Vitamin B-12) 1,000 MCG TAB PO SCH (08:04)
[2022-12-16] MEDS: Senokot S 8.6-50 MG TAB PO SCH (08:04)
[2022-12-16] MEDS: Famotidine/PF 20 mg/2ml Vial SLOW IVP SCH ×2 (08:05→21:44)
[2022-12-16] MEDS: Cholecalciferol 1,000 UNITS (25 MCG) TAB PO SCH (08:05)
[2022-12-16] MEDS: Entacapone 200 mg Tablet PO SCH ×4 (08:21→21:44)
[2022-12-16] MEDS ORDERED: traZODone HCl 50 MG TAB PO PRN (19:08)
[2022-12-16 19:55] LABS: Anion Gap 16 mmol/L (10-20); BUN (Urea Nitrogen) 16 mg/dL (8.4-25.7); Calc. Creatinine Clearance 47 mL/min (70-130); Calcium 9.9 mg/dL (7.8-10.44); Carbon Dioxide 27 mmol/L (23-31); Chloride 101 mmol/L (98-107); Estimated GFR 52; Glucose 140 mg/dL (83-110); Potassium 4.3 mmol/L (3.5-5.1); Sodium 140 mmol/L (136-145)
[2022-12-16 20:17] LABS: Thyroid Stimulating Hormone 1.1108 uIU/mL (0.35-4.94)
[2022-12-16] MEDS ORDERED: Nitroglycerin 2% Ointment 1 INCH/1 GM Packet TOP SCH (21:00)
[2022-12-16] MEDS: hydrALAZINE 25 MG TAB PO SCH (21:43)
[2022-12-16] MEDS: Tamsulosin HCl 0.4 MG CAP PO SCH (21:43)
[2022-12-16] MEDS: Bupropion 150 MG SR TAB PO SCH (21:43)
[2022-12-16] MEDS: Atorvastatin Calcium 10 MG TAB PO SCH (21:44)
[2022-12-17] MEDS: Senokot S 8.6-50 MG TAB PO SCH ×3 (02:21→20:50)
[2022-12-17 03:41] LABS: Bilirubin Neg (Negative); Blood, Urine 10 (Negative); Clarity Clear (Clear); Glucose, Urine (Dipstick) Normal (Negative); Ketone, Urine 5 mg/dL (Negative); Leukocyte Negative (Negative); Nitrite Negative (Negative); Protein, Urine (Dipstick) 15 mg/dl (Neg-Trace); Specific Gravity, Urine 1.025 (1.005-1.030); Urobilinogen Normal mg/dL (Less than 2)
[2022-12-17 03:50] LABS: Bacteria/HPF None Seen HPF (None Seen); CAUTI Indications for Culture Alt mental st,lethar; Mucous/LPF 4+ LPF (<2+); RBC/HPF 0-3 HPF (0-3); Squamous Epithelial None Seen HPF (0-3); WBC/HPF None Seen HPF (0-3)
[2022-12-17 03:51] LABS: Urine Culture Reflex No No
[2022-12-17 05:05] LABS: #Eosinphils 0.1 10x3/uL (0.0-0.5); #Monocytes 0.8 10x3/uL (0.0-1.1); #Neutrophils 4.4 10x3/uL (1.5-8.4); %Basophils 0.4 % (0.0-2.0); %Eosinophils 1.4 % (0.0-6.0); %Monocytes 11.6 % (0.0-10.0); %Neutrophils 63.3 % (40.0-75.0); Hematocrit 40.7 % (38.8-50.0); Hemoglobin 13.2 g/dL (13.5-17.5); Mean Corpuscular HGB CONC 32.4 g/dL (32.0-36.0); Mean Corpuscular Hemoglobin 30.8 pg (27.0-33.0); Mean Corpuscular Volume 95.1 fl (81.2-95.1); Mean Platelet Volume 10.6 fl (7.4-10.4); Platelet Count 202 10x3/uL (150-450); RBC Distribution Width 12.7 % (11.5-14.5); Red Blood Cell (RBC) Count 4.28 10x6/uL (4.32-5.72)
[2022-12-17 05:09] LABS: ALT (SGPT) Less than 7 U/L (8-55); AST (SGOT) 19 U/L (5-34); Albumin 4.4 g/dL (3.4-4.8); Alkaline Phosphatase 95 U/L (40-110); Anion Gap 17 mmol/L (10-20); BUN (Urea Nitrogen) 18 mg/dL (8.4-25.7); Bilirubin, Total 1.7 mg/dL (0.2-1.2); Calc. Creatinine Clearance 47 mL/min (70-130); Calcium 9.6 mg/dL (7.8-10.44); Carbon Dioxide 24 mmol/L (23-31); Chloride 103 mmol/L (98-107); Estimated GFR 52; Globulin 2.5 g/dL (2.4-3.5); Glucose 101 mg/dL (83-110); Potassium 4.2 mmol/L (3.5-5.1); Protein, Total 6.9 g/dL (5.8-8.1); Sodium 140 mmol/L (136-145)
[2022-12-17] MEDS ORDERED: Famotidine/PF 20 mg/2ml Vial SLOW IVP SCH (09:00)
[2022-12-17] MEDS: Cholecalciferol 1,000 UNITS (25 MCG) TAB PO SCH (09:36)
[2022-12-17] MEDS: Bupropion 150 MG SR TAB PO SCH ×2 (09:36→20:51)
[2022-12-17] MEDS: Amantadine HCl 100 mg Capsule PO SCH (09:37)
[2022-12-17] MEDS: Lisinopril 10 MG TAB PO SCH (09:37)
[2022-12-17] MEDS: Finasteride 5 MG TAB PO SCH (09:37)
[2022-12-17] MEDS: Ferrous Gluconate 324 MG TAB PO SCH (09:37)
[2022-12-17] MEDS: Cyanocobalamin (Vitamin B-12) 1,000 MCG TAB PO SCH (09:37)
[2022-12-17] MEDS: hydrALAZINE 25 MG TAB PO SCH ×2 (09:37→20:51)
[2022-12-17] MEDS: Aspirin 81 mg Enteric Coated Tablet PO SCH (09:38)
[2022-12-17] MEDS: Carbidopa/Levodopa 25-100 mg Tablet PO SCH ×4 (09:38→20:58)
[2022-12-17] MEDS: Entacapone 200 mg Tablet PO SCH ×4 (09:38→20:58)
[2022-12-17] MEDS ORDERED: Iopamidol 300 61% 100 ML VIAL FS ONE (10:31)
[2022-12-17 16:13] LABS: Vitamin B12 Greater than 2000 pg/mL (211-911)
[2022-12-17] MEDS: Lactated Ringer's 1,000 ML IV SCH (18:20)
[2022-12-17] MEDS: Atorvastatin Calcium 10 MG TAB PO SCH (20:51)
[2022-12-17] MEDS: Tamsulosin HCl 0.4 MG CAP PO SCH (20:52)
[2022-12-18 03:59] LABS: #Basophils 0.1 10x3/uL (0.0-0.2); #Eosinphils 0.2 10x3/uL (0.0-0.5); #Monocytes 0.7 10x3/uL (0.0-1.1); #Neutrophils 2.7 10x3/uL (1.5-8.4); %Eosinophils 2.9 % (0.0-6.0); %Lymphocytes 29.5 % (18.0-47.0); %Monocytes 13.4 % (0.0-10.0); %Neutrophils 53.2 % (40.0-75.0); Hematocrit 40.8 % (38.8-50.0); Hemoglobin 13.1 g/dL (13.5-17.5); Mean Corpuscular HGB CONC 32.1 g/dL (32.0-36.0); Mean Corpuscular Hemoglobin 30.2 pg (27.0-33.0); Mean Platelet Volume 10.3 fl (7.4-10.4); Platelet Count 172 10x3/uL (150-450); RBC Distribution Width 12.5 % (11.5-14.5); Red Blood Cell (RBC) Count 4.34 10x6/uL (4.32-5.72); White Blood Cell (WBC) Count 5.2 10x3/uL (3.5-10.5)
[2022-12-18 04:19] LABS: Anion Gap 13 mmol/L (10-20); BUN (Urea Nitrogen) 18 mg/dL (8.4-25.7); Calc. Creatinine Clearance 51 mL/min (70-130); Calcium 9.4 mg/dL (7.8-10.44); Carbon Dioxide 26 mmol/L (23-31); Chloride 104 mmol/L (98-107); Estimated GFR 58; Glucose 98 mg/dL (83-110); Sodium 139 mmol/L (136-145)
[2022-12-18] MEDS: Lactated Ringer's 1,000 ML IV SCH (05:13)
[2022-12-18] MEDS ORDERED: Amlodipine 5 MG TAB PO SCH (08:15)
[2022-12-18] MEDS: Ferrous Gluconate 324 MG TAB PO SCH (12:07)
[2022-12-18] MEDS: Carbidopa/Levodopa 25-100 mg Tablet PO SCH ×5 (12:07→23:29)
[2022-12-18] MEDS: Lisinopril 10 MG TAB PO SCH (12:08)
[2022-12-18] MEDS: Finasteride 5 MG TAB PO SCH (12:08)
[2022-12-18] MEDS: Cyanocobalamin (Vitamin B-12) 1,000 MCG TAB PO SCH (12:08)
[2022-12-18] MEDS: Amantadine HCl 100 mg Capsule PO SCH (12:08)
[2022-12-18] MEDS: Aspirin 81 mg Enteric Coated Tablet PO SCH (12:08)
[2022-12-18] MEDS: Senokot S 8.6-50 MG TAB PO SCH ×2 (12:09→23:28)
[2022-12-18] MEDS: Bupropion 150 MG SR TAB PO SCH ×2 (12:10→23:29)
[2022-12-18] MEDS: Cholecalciferol 1,000 UNITS (25 MCG) TAB PO SCH (12:10)
[2022-12-18] MEDS: Amlodipine 5 MG TAB PO SCH (12:11)
[2022-12-18] MEDS: Entacapone 200 mg Tablet PO SCH ×5 (12:18→23:29)
[2022-12-18] MEDS: hydrALAZINE 25 MG TAB PO SCH ×2 (13:09→23:28)
[2022-12-18] MEDS: Atorvastatin Calcium 10 MG TAB PO SCH (23:28)
[2022-12-18] MEDS: Tamsulosin HCl 0.4 MG CAP PO SCH (23:29)
[2022-12-19 04:27] LABS: #Eosinphils 0.1 10x3/uL (0.0-0.5); #Monocytes 0.9 10x3/uL (0.0-1.1); #Neutrophils 4.3 10x3/uL (1.5-8.4); %Basophils 0.6 % (0.0-2.0); %Eosinophils 1.4 % (0.0-6.0); %Lymphocytes 25.8 % (18.0-47.0); %Monocytes 12.4 % (0.0-10.0); %Neutrophils 59.7 % (40.0-75.0); Hematocrit 40.4 % (38.8-50.0); Hemoglobin 13.2 g/dL (13.5-17.5); Mean Corpuscular HGB CONC 32.7 g/dL (32.0-36.0); Mean Corpuscular Hemoglobin 30.9 pg (27.0-33.0); Mean Corpuscular Volume 94.6 fl (81.2-95.1); Mean Platelet Volume 10.7 fl (7.4-10.4); Platelet Count 185 10x3/uL (150-450); RBC Distribution Width 12.6 % (11.5-14.5); Red Blood Cell (RBC) Count 4.27 10x6/uL (4.32-5.72); White Blood Cell (WBC) Count 7.2 10x3/uL (3.5-10.5)
[2022-12-19 04:37] LABS: Anion Gap 16 mmol/L (10-20); BUN (Urea Nitrogen) 17 mg/dL (8.4-25.7); Calc. Creatinine Clearance 49 mL/min (70-130); Calcium 9.4 mg/dL (7.8-10.44); Carbon Dioxide 25 mmol/L (23-31); Chloride 103 mmol/L (98-107); Estimated GFR 55; Glucose 101 mg/dL (83-110); Potassium 3.8 mmol/L (3.5-5.1); Sodium 140 mmol/L (136-145)
[2022-12-19] MEDS: Bupropion 150 MG SR TAB PO SCH ×2 (09:44→23:48)
[2022-12-19] MEDS: Cholecalciferol 1,000 UNITS (25 MCG) TAB PO SCH (09:44)
[2022-12-19] MEDS: Finasteride 5 MG TAB PO SCH (09:45)
[2022-12-19] MEDS: Lisinopril 10 MG TAB PO SCH (09:45)
[2022-12-19] MEDS: Ferrous Gluconate 324 MG TAB PO SCH (09:45)
[2022-12-19] MEDS: Aspirin 81 mg Enteric Coated Tablet PO SCH (09:45)
[2022-12-19] MEDS: Carbidopa/Levodopa 25-100 mg Tablet PO SCH ×4 (09:45→23:49)
[2022-12-19] MEDS: hydrALAZINE 25 MG TAB PO SCH ×2 (09:45→23:48)
[2022-12-19] MEDS: Amlodipine 5 MG TAB PO SCH (09:45)
[2022-12-19] MEDS: Entacapone 200 mg Tablet PO SCH ×4 (09:46→23:49)
[2022-12-19] MEDS: Amantadine HCl 100 mg Capsule PO SCH (09:46)
[2022-12-19] MEDS: Cyanocobalamin (Vitamin B-12) 1,000 MCG TAB PO SCH (09:46)
[2022-12-19] MEDS: Senokot S 8.6-50 MG TAB PO SCH ×2 (09:57→23:47)
[2022-12-19] MEDS ORDERED: QUEtiapine 25 MG TAB PO SCH (14:00)
[2022-12-19] MEDS: Tamsulosin HCl 0.4 MG CAP PO SCH (23:47)
[2022-12-19] MEDS: Atorvastatin Calcium 40 MG TAB PO SCH (23:48)
[2022-12-19] MEDS: QUEtiapine 25 MG TAB PO SCH (23:49)
[2022-12-20 05:14] LABS: Anion Gap 18 mmol/L (10-20); BUN (Urea Nitrogen) 19 mg/dL (8.4-25.7); Calc. Creatinine Clearance 52 mL/min (70-130); Calcium 9.7 mg/dL (7.8-10.44); Carbon Dioxide 21 mmol/L (23-31); Chloride 103 mmol/L (98-107); Estimated GFR 59; Glucose 107 mg/dL (83-110); Potassium 3.6 mmol/L (3.5-5.1); Sodium 138 mmol/L (136-145)
[2022-12-20 05:18] LABS: #Eosinphils 0.1 10x3/uL (0.0-0.5); #Monocytes 0.9 10x3/uL (0.0-1.1); #Neutrophils 5.4 10x3/uL (1.5-8.4); %Basophils 0.5 % (0.0-2.0); %Lymphocytes 16.9 % (18.0-47.0); %Monocytes 11.5 % (0.0-10.0); %Neutrophils 69.8 % (40.0-75.0); Hematocrit 40.6 % (38.8-50.0); Hemoglobin 13.4 g/dL (13.5-17.5); Mean Corpuscular Hemoglobin 30.8 pg (27.0-33.0); Mean Corpuscular Volume 93.3 fl (81.2-95.1); Mean Platelet Volume 10.8 fl (7.4-10.4); Platelet Count 191 10x3/uL (150-450); RBC Distribution Width 12.5 % (11.5-14.5); Red Blood Cell (RBC) Count 4.35 10x6/uL (4.32-5.72); White Blood Cell (WBC) Count 7.8 10x3/uL (3.5-10.5)
[2022-12-20] MEDS: Carbidopa/Levodopa 25-100 mg Tablet PO SCH ×4 (09:04→22:17)
[2022-12-20] MEDS: Senokot S 8.6-50 MG TAB PO SCH ×2 (09:04→22:19)
[2022-12-20] MEDS: hydrALAZINE 25 MG TAB PO SCH ×2 (09:05→22:18)
[2022-12-20] MEDS: Amlodipine 5 MG TAB PO SCH (09:05)
[2022-12-20] MEDS: Ferrous Gluconate 324 MG TAB PO SCH (09:05)
[2022-12-20] MEDS: Lisinopril 10 MG TAB PO SCH (09:05)
[2022-12-20] MEDS: Finasteride 5 MG TAB PO SCH (09:06)
[2022-12-20] MEDS: Cyanocobalamin (Vitamin B-12) 1,000 MCG TAB PO SCH (09:06)
[2022-12-20] MEDS: Cholecalciferol 1,000 UNITS (25 MCG) TAB PO SCH (09:07)
[2022-12-20] MEDS: Aspirin 81 mg Enteric Coated Tablet PO SCH (09:07)
[2022-12-20] MEDS: Bupropion 150 MG SR TAB PO SCH ×2 (09:07→22:19)
[2022-12-20] MEDS: Amantadine HCl 100 mg Capsule PO SCH (09:07)
[2022-12-20] MEDS: Entacapone 200 mg Tablet PO SCH ×4 (09:11→22:18)
[2022-12-20] MEDS: Tamsulosin HCl 0.4 MG CAP PO SCH (22:18)
[2022-12-20] MEDS: Atorvastatin Calcium 40 MG TAB PO SCH (22:18)
[2022-12-20] MEDS: QUEtiapine 25 MG TAB PO SCH (22:19)
[2022-12-21 04:16] LABS: Anion Gap 16 mmol/L (10-20); BUN (Urea Nitrogen) 23 mg/dL (8.4-25.7); Calc. Creatinine Clearance 51 mL/min (70-130); Calcium 9.7 mg/dL (7.8-10.44); Carbon Dioxide 24 mmol/L (23-31); Chloride 104 mmol/L (98-107); Estimated GFR 57; Glucose 105 mg/dL (83-110); Potassium 3.9 mmol/L (3.5-5.1); Sodium 140 mmol/L (136-145)
[2022-12-21 04:21] LABS: #Eosinphils 0.1 10x3/uL (0.0-0.5); #Neutrophils 5.4 10x3/uL (1.5-8.4); %Basophils 0.2 % (0.0-2.0); %Eosinophils 1.4 % (0.0-6.0); %Lymphocytes 19.1 % (18.0-47.0); %Monocytes 11.9 % (0.0-10.0); %Neutrophils 67.2 % (40.0-75.0); Hematocrit 41.9 % (38.8-50.0); Hemoglobin 13.7 g/dL (13.5-17.5); Mean Corpuscular HGB CONC 32.7 g/dL (32.0-36.0); Mean Corpuscular Hemoglobin 30.7 pg (27.0-33.0); Mean Corpuscular Volume 93.9 fl (81.2-95.1); Mean Platelet Volume 10.7 fl (7.4-10.4); Platelet Count 204 10x3/uL (150-450); RBC Distribution Width 12.4 % (11.5-14.5); Red Blood Cell (RBC) Count 4.46 10x6/uL (4.32-5.72); White Blood Cell (WBC) Count 8.1 10x3/uL (3.5-10.5)
[2022-12-21] MEDS: Carbidopa/Levodopa 25-100 mg Tablet PO SCH ×4 (09:34→21:40)
[2022-12-21] MEDS: Senokot S 8.6-50 MG TAB PO SCH ×2 (09:34→21:40)
[2022-12-21] MEDS: Bupropion 150 MG SR TAB PO SCH ×2 (09:34→21:39)
[2022-12-21] MEDS: Lisinopril 10 MG TAB PO SCH (09:34)
[2022-12-21] MEDS: Cholecalciferol 1,000 UNITS (25 MCG) TAB PO SCH (09:34)
[2022-12-21] MEDS: Entacapone 200 mg Tablet PO SCH ×4 (09:34→21:40)
[2022-12-21] MEDS: Ferrous Gluconate 324 MG TAB PO SCH (09:35)
[2022-12-21] MEDS: Amlodipine 5 MG TAB PO SCH (09:35)
[2022-12-21] MEDS: Finasteride 5 MG TAB PO SCH (09:35)
[2022-12-21] MEDS: Aspirin 81 mg Enteric Coated Tablet PO SCH (09:35)
[2022-12-21] MEDS: Amantadine HCl 100 mg Capsule PO SCH (09:36)
[2022-12-21] MEDS: hydrALAZINE 25 MG TAB PO SCH ×2 (09:36→21:40)
[2022-12-21] MEDS: Cyanocobalamin (Vitamin B-12) 1,000 MCG TAB PO SCH (09:36)
[2022-12-21] MEDS: Atorvastatin Calcium 40 MG TAB PO SCH (21:39)
[2022-12-21] MEDS: QUEtiapine 25 MG TAB PO SCH (21:40)
[2022-12-21] MEDS: Tamsulosin HCl 0.4 MG CAP PO SCH (21:40)
[2022-12-22 03:57] LABS: #Basophils 0.1 10x3/uL (0.0-0.2); #Eosinphils 0.1 10x3/uL (0.0-0.5); #Neutrophils 5.5 10x3/uL (1.5-8.4); %Basophils 0.6 % (0.0-2.0); %Lymphocytes 18.8 % (18.0-47.0); %Monocytes 12.4 % (0.0-10.0); Hematocrit 40.4 % (38.8-50.0); Hemoglobin 13.2 g/dL (13.5-17.5); Mean Corpuscular HGB CONC 32.7 g/dL (32.0-36.0); Mean Corpuscular Hemoglobin 30.7 pg (27.0-33.0); Mean Platelet Volume 10.6 fl (7.4-10.4); Platelet Count 200 10x3/uL (150-450); RBC Distribution Width 12.5 % (11.5-14.5); White Blood Cell (WBC) Count 8.2 10x3/uL (3.5-10.5)
[2022-12-22 04:00] LABS: Anion Gap 20 mmol/L (10-20); BUN (Urea Nitrogen) 26 mg/dL (8.4-25.7); Calc. Creatinine Clearance 44 mL/min (70-130); Carbon Dioxide 22 mmol/L (23-31); Chloride 105 mmol/L (98-107); Estimated GFR 48; Glucose 96 mg/dL (83-110); Potassium 3.7 mmol/L (3.5-5.1); Sodium 143 mmol/L (136-145)
[2022-12-22] MEDS: Finasteride 5 MG TAB PO SCH (09:54)
[2022-12-22] MEDS: Bupropion 150 MG SR TAB PO SCH ×2 (09:54→23:35)
[2022-12-22] MEDS: Aspirin 81 mg Enteric Coated Tablet PO SCH (09:54)
[2022-12-22] MEDS: Ferrous Gluconate 324 MG TAB PO SCH (09:54)
[2022-12-22] MEDS: Amantadine HCl 100 mg Capsule PO SCH (09:55)
[2022-12-22] MEDS: Carbidopa/Levodopa 25-100 mg Tablet PO SCH ×4 (09:55→23:34)
[2022-12-22] MEDS: Lisinopril 10 MG TAB PO SCH (09:55)
[2022-12-22] MEDS: Cholecalciferol 1,000 UNITS (25 MCG) TAB PO SCH (09:55)
[2022-12-22] MEDS: hydrALAZINE 25 MG TAB PO SCH ×2 (09:55→23:34)
[2022-12-22] MEDS: Cyanocobalamin (Vitamin B-12) 1,000 MCG TAB PO SCH (09:56)
[2022-12-22] MEDS: Senokot S 8.6-50 MG TAB PO SCH ×2 (11:16→23:33)
[2022-12-22] MEDS: Entacapone 200 mg Tablet PO SCH ×4 (11:16→23:34)
[2022-12-22] MEDS: Amlodipine 5 MG TAB PO SCH (11:16)
[2022-12-22] MEDS: Sodium Chloride 0.9% 1,000 ML IV SCH (13:22)
[2022-12-22] MEDS: Tamsulosin HCl 0.4 MG CAP PO SCH (23:34)
[2022-12-22] MEDS: Atorvastatin Calcium 40 MG TAB PO SCH (23:35)
[2022-12-22] MEDS: QUEtiapine 25 MG TAB PO SCH (23:35)
[2022-12-23] MEDS: Sodium Chloride 0.9% 1,000 ML IV SCH ×2 (03:38→13:26)
[2022-12-23 04:02] LABS: #Eosinphils 0.1 10x3/uL (0.0-0.5); #Monocytes 0.9 10x3/uL (0.0-1.1); #Neutrophils 5.8 10x3/uL (1.5-8.4); %Basophils 0.5 % (0.0-2.0); %Lymphocytes 16.7 % (18.0-47.0); %Monocytes 10.9 % (0.0-10.0); %Neutrophils 70.5 % (40.0-75.0); Hematocrit 39.9 % (38.8-50.0); Hemoglobin 12.8 g/dL (13.5-17.5); Mean Corpuscular HGB CONC 32.1 g/dL (32.0-36.0); Mean Corpuscular Hemoglobin 30.8 pg (27.0-33.0); Mean Corpuscular Volume 95.9 fl (81.2-95.1); Mean Platelet Volume 10.7 fl (7.4-10.4); Platelet Count 188 10x3/uL (150-450); RBC Distribution Width 12.7 % (11.5-14.5); Red Blood Cell (RBC) Count 4.16 10x6/uL (4.32-5.72); White Blood Cell (WBC) Count 8.2 10x3/uL (3.5-10.5)
[2022-12-23 04:16] LABS: Anion Gap 17 mmol/L (10-20); BUN (Urea Nitrogen) 30 mg/dL (8.4-25.7); Calc. Creatinine Clearance 56 mL/min (70-130); Calcium 9.6 mg/dL (7.8-10.44); Carbon Dioxide 21 mmol/L (23-31); Chloride 107 mmol/L (98-107); Estimated GFR 64; Glucose 113 mg/dL (83-110); Potassium 3.8 mmol/L (3.5-5.1); Sodium 141 mmol/L (136-145)
[2022-12-23] MEDS: Carbidopa/Levodopa 25-100 mg Tablet PO SCH ×4 (10:08→20:53)
[2022-12-23] MEDS: Entacapone 200 mg Tablet PO SCH ×4 (10:08→20:59)
[2022-12-23] MEDS: Amantadine HCl 100 mg Capsule PO SCH (10:12)
[2022-12-23] MEDS: Bupropion 150 MG SR TAB PO SCH ×2 (10:15→20:52)
[2022-12-23] MEDS: Senokot S 8.6-50 MG TAB PO SCH ×2 (10:15→21:15)
[2022-12-23] MEDS: hydrALAZINE 25 MG TAB PO SCH ×2 (10:16→20:57)
[2022-12-23] MEDS: Ferrous Gluconate 324 MG TAB PO SCH (10:16)
[2022-12-23] MEDS: Amlodipine 5 MG TAB PO SCH (10:19)
[2022-12-23] MEDS: Lisinopril 10 MG TAB PO SCH (10:19)
[2022-12-23] MEDS: Cholecalciferol 1,000 UNITS (25 MCG) TAB PO SCH (10:20)
[2022-12-23] MEDS: Aspirin 81 mg Enteric Coated Tablet PO SCH (10:20)
[2022-12-23] MEDS: Cyanocobalamin (Vitamin B-12) 1,000 MCG TAB PO SCH (10:20)
[2022-12-23] MEDS: Finasteride 5 MG TAB PO SCH (12:07)
[2022-12-23] MEDS: Atorvastatin Calcium 40 MG TAB PO SCH (20:52)
[2022-12-23] MEDS: QUEtiapine 25 MG TAB PO SCH (20:55)
[2022-12-23] MEDS: Polyethylene Glycol 3350 17 GM Packet PO SCH (20:59)
[2022-12-23] MEDS ORDERED: Senokot S 8.6-50 MG TAB PO SCH (21:00)
[2022-12-23] MEDS: Tamsulosin HCl 0.4 MG CAP PO SCH (21:15)
[2022-12-24] MEDS: Sodium Chloride 0.9% 1,000 ML IV SCH (03:32)
[2022-12-24 03:48] LABS: #Eosinphils 0.1 10x3/uL (0.0-0.5); #Monocytes 0.8 10x3/uL (0.0-1.1); #Neutrophils 4.7 10x3/uL (1.5-8.4); %Basophils 0.4 % (0.0-2.0); %Lymphocytes 19.2 % (18.0-47.0); %Monocytes 11.7 % (0.0-10.0); %Neutrophils 66.4 % (40.0-75.0); Hemoglobin 12.5 g/dL (13.5-17.5); Mean Corpuscular HGB CONC 32.1 g/dL (32.0-36.0); Mean Corpuscular Hemoglobin 30.9 pg (27.0-33.0); Mean Corpuscular Volume 96.3 fl (81.2-95.1); Mean Platelet Volume 10.9 fl (7.4-10.4); Platelet Count 159 10x3/uL (150-450); RBC Distribution Width 12.6 % (11.5-14.5); Red Blood Cell (RBC) Count 4.05 10x6/uL (4.32-5.72); White Blood Cell (WBC) Count 7.1 10x3/uL (3.5-10.5)
[2022-12-24 04:03] LABS: Phosphorus 2.8 mg/dL (2.3-4.7)
[2022-12-24 04:05] LABS: Anion Gap 15 mmol/L (10-20); BUN (Urea Nitrogen) 28 mg/dL (8.4-25.7); Calc. Creatinine Clearance 65 mL/min (70-130); Calcium 8.9 mg/dL (7.8-10.44); Carbon Dioxide 23 mmol/L (23-31); Chloride 104 mmol/L (98-107); Estimated GFR 77; Glucose 114 mg/dL (83-110); Magnesium 1.8 mg/dL (1.6-2.6); Potassium 3.9 mmol/L (3.5-5.1); Sodium 138 mmol/L (136-145)
[2022-12-24] MEDS: hydrALAZINE 25 MG TAB PO SCH ×2 (09:55→20:04)
[2022-12-24] MEDS: Aspirin 81 mg Enteric Coated Tablet PO SCH (09:55)
[2022-12-24] MEDS: Ferrous Gluconate 324 MG TAB PO SCH (09:55)
[2022-12-24] MEDS: Finasteride 5 MG TAB PO SCH (09:55)
[2022-12-24] MEDS: Bupropion 150 MG SR TAB PO SCH ×2 (09:56→19:59)
[2022-12-24] MEDS: Cyanocobalamin (Vitamin B-12) 1,000 MCG TAB PO SCH (09:56)
[2022-12-24] MEDS: Cholecalciferol 1,000 UNITS (25 MCG) TAB PO SCH (09:56)
[2022-12-24] MEDS: Amantadine HCl 100 mg Capsule PO SCH (09:56)
[2022-12-24] MEDS: Amlodipine 5 MG TAB PO SCH (10:01)
[2022-12-24] MEDS: Triple Antibiotic Oint 1 GM Packet TOP SCH ×3 (10:01→20:05)
[2022-12-24] MEDS: Carbidopa/Levodopa 25-100 mg Tablet PO SCH ×4 (10:02→19:59)
[2022-12-24] MEDS: Entacapone 200 mg Tablet PO SCH ×4 (10:03→20:02)
[2022-12-24] MEDS: Senokot S 8.6-50 MG TAB PO SCH ×2 (10:08→20:18)
[2022-12-24] MEDS: Atorvastatin Calcium 40 MG TAB PO SCH (19:58)
[2022-12-24] MEDS: Polyethylene Glycol 3350 17 GM Packet PO SCH (19:58)
[2022-12-24] MEDS: Tamsulosin HCl 0.4 MG CAP PO SCH (19:59)
[2022-12-24 20:06] VITALS: BP 139/80
[2022-12-24 20:51] VITALS: TEMP 98.5
[2022-12-24] MEDS ORDERED: Senokot S 8.6-50 MG TAB PO SCH (21:00)
== END 2022-12-24 20:38 | DRG 69 ==
LOC: CSHERS 10:05 → CSHTELE 12:06 → OBSVTOIN 12-19 16:08
PROVIDERS: ADMIT Family Medicine; ATTEND Internal Medicine
DX: G45.9 Transient cerebral ischemic attack, unspecified (principal); N17.9 Acute kidney failure, unspecified; J90 Pleural effusion, not elsewhere classified; R27.0 Ataxia, unspecified; N18.2 Chronic kidney disease, stage 2 (mild); G20 Parkinson's disease; I12.9 Hypertensive chronic kidney disease with stage 1 through stage 4 chronic kidney disease, or unspecified chronic kidney disease; N40.0 Benign prostatic hyperplasia without lower urinary tract symptoms; D63.1 Anemia in chronic kidney disease; E78.5 Hyperlipidemia, unspecified; K21.9 Gastro-esophageal reflux disease without esophagitis; E86.0 Dehydration; Z79.899 Other long term (current) drug therapy; Z79.82 Long term (current) use of aspirin; Z98.41 Cataract extraction status, right eye; Z98.42 Cataract extraction status, left eye; Z80.0 Family history of malignant neoplasm of digestive organs; Z87.891 Personal history of nicotine dependence; Z87.440 Personal history of urinary (tract) infections; R45.1 Restlessness and agitation; I16.0 Hypertensive urgency
CPT/HCPCS: 36415; 70450; 70498; 70544; 70547; 70551; 71045; 80048; 80053; 81001; 82607; 83605; 83735; 84100; 84443; 84484; 85025; 85610; 85730; 93005; 93880; 95819; 95957; 96372; 96374; 96375; 96376; 97139; G0378; J0360; J1650; J7050; J7120; Q9967; S0028

== ENCOUNTER 2023-01-22 09:13 | Inpatient (IN) | payer MEDICARE, OTHER ==
[2023-01-22] MEDS ORDERED: NOREPINEPHRINE 8 MG/250 ML-D5W 250 ML ONE (09:34)
[2023-01-22 09:55] LABS: #Basophils 0.1 10x3/uL (0.0-0.2); #Neutrophils 17.5 10x3/uL (1.5-8.4); %Basophils 0.5 % (0.0-2.0); %Eosinophils 0.1 % (0.0-6.0); %Lymphocytes 6.6 % (18.0-47.0); %Monocytes 4.8 % (0.0-10.0); %Neutrophils 86.4 % (40.0-75.0); Hematocrit 44.9 % (38.8-50.0); Hemoglobin 13.9 g/dL (13.5-17.5); Mean Corpuscular Volume 100.2 fl (81.2-95.1); Mean Platelet Volume 12.4 fl (7.4-10.4); Platelet Count 259 10x3/uL (150-450); RBC Distribution Width 13.5 % (11.5-14.5); Red Blood Cell (RBC) Count 4.48 10x6/uL (4.32-5.72); White Blood Cell (WBC) Count 20.3 10x3/uL (3.5-10.5)
[2023-01-22 10:00] LABS: Actual Bicarbonate (HCO3a) 17.9 mEq/L (22-28); Base Excess (BEa) -6.6 mEq/L (-2.0 to +3.0); CO2 Tension 33.4 mmHg (35.0-45.0); Calcium, Ionized (arterial) 1.13 mmol/L (1.12-1.30); Carboxyhemoglobin (COHb) 0.3 gm% (0.0-3.0); Hematocrit-ABG 47 % (42.0-52.0); Hemoglobin (Hb) 15.9 g/dL (14.0-18.0); O2 Tension (PaO2), arterial 541.5 mmHg (> 70.0); Puncture Site LBA; pH, Arterial 7.348 (7.35-7.45)
[2023-01-22] MEDS ORDERED: Pantoprazole 40 MG VIAL ONE (10:44)
[2023-01-22 10:49] LABS: Bilirubin 1+ (Negative); Blood, Urine 250 (Negative); Clarity Cloudy (Clear); Glucose, Urine (Dipstick) Normal (Negative); Ketone, Urine 15 mg/dL (Negative); Leukocyte 100 (Negative); Nitrite Negative (Negative); Protein, Urine (Dipstick) 30 mg/dl (Neg-Trace); Specific Gravity, Urine 1.025 (1.005-1.030); Urobilinogen Normal mg/dL (Less than 2)
[2023-01-22 11:07] LABS: Troponin I 0.169 ng/mL (< 0.028)
[2023-01-22 11:08] LABS: CAUTI Indications for Culture Alt mental st,lethar; RBC/HPF 21-50 HPF (0-3)
[2023-01-22 11:11] LABS: Bacteria/HPF 2+ HPF (None Seen); Mucous/LPF 1+ LPF (<2+)
[2023-01-22 11:13] LABS: Urine Culture Reflex Yes Yes
[2023-01-22 11:24] LABS: SARS-CoV-2 NAA Rapid Test Not Detected (NotDetected)
[2023-01-22 11:32] LABS: ALT (SGPT) 56 U/L (8-55); AST (SGOT) 971 U/L (5-34); Albumin 3.5 g/dL (3.4-4.8); Alkaline Phosphatase 114 U/L (40-110); Anion Gap 25 mmol/L (10-20); BUN (Urea Nitrogen) 119 mg/dL (8.4-25.7); Bilirubin, Total 0.8 mg/dL (0.2-1.2); Calc. Creatinine Clearance 0 mL/min (70-130); Calcium 8.9 mg/dL (7.8-10.44); Carbon Dioxide 18 mmol/L (23-31); Chloride 130 mmol/L (98-107); Estimated GFR 8; Globulin 3.5 g/dL (2.4-3.5); Glucose 138 mg/dL (83-110); Potassium 3.8 mmol/L (3.5-5.1); Sodium 169 mmol/L (136-145)
[2023-01-22] MEDS ORDERED: Diazepam 10 MG/2 ML SYRINGE ONE (12:07)
[2023-01-22 13:41] VITALS: BMI 19.8
[2023-01-22 13:53] LABS: Lactic Acid 2.6 mmol/L (0.5-2.2)
[2023-01-22] MEDS ORDERED: Communication Order-Pharmacy FS SCH (14:26)
[2023-01-22] MEDS ORDERED: Ventilator Sedation Protocol 1 EACH FS SCH (14:26)
[2023-01-22] MEDS ORDERED: Haloperidol Lactate 5 MG/ML VIAL SLOW IVP PRN (14:28)
[2023-01-22] MEDS ORDERED: Acetaminophen 650 MG Suppository PR PRN (14:28)
[2023-01-22] MEDS ORDERED: Lorazepam 2 MG/ML VIAL SLOW IVP PRN ×2 (14:28→14:30)
[2023-01-22] MEDS ORDERED: Morphine 2 MG/ML VIAL SLOW IVP PRN ×2 (14:28→14:30)
[2023-01-22] MEDS ORDERED: Electrolyte Replacement Protocol 1 EACH IVPB ONE (14:28)
[2023-01-22] MEDS ORDERED: Ondansetron PF 4 MG/2 ML Vial IVP PRN (14:28)
[2023-01-22] MEDS ORDERED: Propofol 1,000 MG/100 ML VIAL IV PRN (14:30)
[2023-01-22] MEDS ORDERED: Propofol BOLUS 1,000 MG/100 ML VIAL IV PRN (14:30)
[2023-01-22] MEDS ORDERED: Fentanyl BOLUS 250 ML IVPB PRN (14:30)
[2023-01-22] MEDS ORDERED: Vancomycin HCl 1.5 GM in Sodium Chloride 0.9% 500 ML IVPB SCH (14:30)
[2023-01-22] MEDS ORDERED: FENTANYL 2,000MCG/100-0.9%NACL 100 ML IVPB SCH (14:30)
[2023-01-22] MEDS ORDERED: DISCONTINUE PREVIOUS NARCOTIC PAIN MEDICATIONS AND BENZODIAZEPINES FS SCH (14:30)
[2023-01-22] MEDS ORDERED: Pantoprazole 40 MG VIAL IVP SCH (14:45)
[2023-01-22] MEDS ORDERED: Vancomycin Dose by Levels Sliding Scale (Wt <71) FS SCH (15:30)
[2023-01-22] MEDS ORDERED: Vancomycin HCl 750 MG in Sodium Chloride 0.9% 250 ML 250 ML IVPB SCH (15:30)
[2023-01-22 15:52] LABS: Hematocrit 45.1 % (38.8-50.0); Hemoglobin 13.1 g/dL (13.5-17.5); MDiff Complete? YES; Mean Corpuscular Hemoglobin 30.3 pg (27.0-33.0); Mean Corpuscular Volume 104.2 fl (81.2-95.1); Platelet Count 294 10x3/uL (150-450); RBC Distribution Width 13.7 % (11.5-14.5); Red Blood Cell (RBC) Count 4.33 10x6/uL (4.32-5.72); White Blood Cell (WBC) Count 25.6 10x3/uL (3.5-10.5)
[2023-01-22] MEDS: NOREPINEPHRINE 8 MG/250 ML-D5W 250 ML IVPB SCH (15:52)
[2023-01-22] MEDS: Vasopressin 20 UNITS in Sodium Chloride 0.9% 50 ML IV SCH ×2 (15:53→21:19)
[2023-01-22 16:17] LABS: ALT (SGPT) 74 U/L (8-55); AST (SGOT) 1151 U/L (5-34); Albumin 3.5 g/dL (3.4-4.8); Alkaline Phosphatase 119 U/L (40-110); Anion Gap 23 mmol/L (10-20); BUN (Urea Nitrogen) 122 mg/dL (8.4-25.7); Calc. Creatinine Clearance 8 mL/min (70-130); Calcium 8.7 mg/dL (7.8-10.44); Carbon Dioxide 19 mmol/L (23-31); Estimated GFR 8; Globulin 3.3 g/dL (2.4-3.5); Glucose 210 mg/dL (83-110); Protein, Total 6.8 g/dL (5.8-8.1); Sodium 163 mmol/L (136-145)
[2023-01-22 16:18] LABS: Chloride 125 mmol/L (98-107); Magnesium 2.8 mg/dL (1.6-2.6); Phosphorus 6.1 mg/dL (2.3-4.7)
[2023-01-22] MEDS: Dextrose 5% in Water 1,000 ML IV SCH (16:30)
[2023-01-22 17:13] LABS: Lymphocytes 5 % (21-51); Monocytes 2 % (0-10); Neutrophil 92 % (42-75); Reactive Lymphocytes 1 % (0-10)
[2023-01-22 17:14] LABS: Macrocytosis SLIGHT = 6-15 cells (100X) (0-5/hpf); Microcytosis SLIGHT = 6-15 cells (100X) (0-5/hpf)
[2023-01-22 17:15] LABS: Platelet Adequacy Comment Appears Adequate; Platelet Clumps SLIGHT
[2023-01-22 20:51] LABS: Anion Gap 21 mmol/L (10-20); Calc. Creatinine Clearance 7 mL/min (70-130); Calcium 8.2 mg/dL (7.8-10.44); Carbon Dioxide 19 mmol/L (23-31); Chloride 124 mmol/L (98-107); Estimated GFR 7; Glucose 282 mg/dL (83-110)
[2023-01-22] MEDS ORDERED: Dextrose 50% Abboject 50 ML SYRINGE SLOW IVP PRN (21:00)
[2023-01-22] MEDS ORDERED: Dextrose 5% in Water 1,000 ML IV PRN (21:00)
[2023-01-22] MEDS ORDERED: Glucagon 1 MG/ML KIT IM PRN (21:00)
[2023-01-22] MEDS ORDERED: Famotidine/PF 20 mg/2ml Vial SLOW IVP SCH (21:00)
[2023-01-22 21:03] LABS: Sodium 160 mmol/L (136-145)
[2023-01-22] MEDS: Carbidopa/Levodopa 25-100 mg Tablet PO SCH (21:07)
[2023-01-22 21:08] LABS: BUN (Urea Nitrogen) 117 mg/dL (8.4-25.7)
[2023-01-22] MEDS: Entacapone 200 mg Tablet PO SCH (21:08)
[2023-01-22] MEDS: Heparin 5,000 UNITS/ML VIAL SC SCH (21:08)
[2023-01-22] MEDS: Pantoprazole 40 MG VIAL IVP SCH (21:09)
[2023-01-22] MEDS: metroNIDAZOLE 500 MG in Premix Bag 1 BAG IVPB SCH (21:09)
[2023-01-22] MEDS: Acetaminophen 650 MG/20.3 ML UDCUP PO PRN (21:10)
[2023-01-23] MEDS: NOREPINEPHRINE 8 MG/250 ML-D5W 250 ML IVPB SCH ×4 (00:10→20:22)
[2023-01-23 05:35] LABS: Hematocrit 38.2 % (38.8-50.0); Hemoglobin 11.7 g/dL (13.5-17.5); Mean Corpuscular HGB CONC 30.6 g/dL (32.0-36.0); Mean Corpuscular Hemoglobin 30.5 pg (27.0-33.0); Mean Corpuscular Volume 99.5 fl (81.2-95.1); Mean Platelet Volume 11.5 fl (7.4-10.4); Platelet Count 238 10x3/uL (150-450); RBC Distribution Width 13.8 % (11.5-14.5); Red Blood Cell (RBC) Count 3.84 10x6/uL (4.32-5.72); White Blood Cell (WBC) Count 13.8 10x3/uL (3.5-10.5)
[2023-01-23] MEDS: metroNIDAZOLE 500 MG in Premix Bag 1 BAG IVPB SCH ×3 (05:36→21:13)
[2023-01-23] MEDS: Dextrose 5% in Water 1,000 ML IV SCH (05:36)
[2023-01-23] MEDS: Vasopressin 20 UNITS in Sodium Chloride 0.9% 50 ML IV SCH ×2 (05:37→14:39)
[2023-01-23 05:40] LABS: Anion Gap 23 mmol/L (10-20); Calc. Creatinine Clearance 6 mL/min (70-130); Calcium 8.3 mg/dL (7.8-10.44); Carbon Dioxide 18 mmol/L (23-31); Chloride 122 mmol/L (98-107); Estimated GFR 7; Glucose 307 mg/dL (83-110); Potassium 4.4 mmol/L (3.5-5.1)
[2023-01-23 05:42] LABS: ALT (SGPT) 73 U/L (8-55); AST (SGOT) 435 U/L (5-34); Albumin 3.2 g/dL (3.4-4.8); Alkaline Phosphatase 106 U/L (40-110); BUN (Urea Nitrogen) Greater than 125 mg/dL (8.4-25.7); Bilirubin, Direct 0.4 mg/dL (0.1-0.3); Bilirubin, Total 0.8 mg/dL (0.2-1.2); Protein, Total 6.3 g/dL (5.8-8.1); Sodium 159 mmol/L (136-145)
[2023-01-23 06:29] LABS: Band 35 % (5-11); Lymphocytes 5 % (21-51); Monocytes 2 % (0-10); Neutrophil 58 % (42-75)
[2023-01-23 06:35] LABS: Large Platelets SLIGHT (None Seen); RBC Morph Comment Within Normal Limits; Toxic Granulation SLIGHT; Vacuoles SLIGHT
[2023-01-23 06:36] LABS: Dohle Bodies SLIGHT
[2023-01-23 06:50] LABS: Reflex for Review?? YES
[2023-01-23 06:52] LABS: MDiff Complete? YES
[2023-01-23] MEDS: HumaLOG 300 UNITS/3 ML VIAL SC PRN ×4 (07:16→20:48)
[2023-01-23] MEDS ORDERED: Dextrose 5 %-0.45 % NaCl 1,000 ML IV SCH (08:30)
[2023-01-23] MEDS ORDERED: levETIRAcetam 2,000 MG, Admixture Fee 1 EACH in Sodium Chloride 0.9% 100 ML IVPB SCH (08:45)
[2023-01-23] MEDS: Heparin 5,000 UNITS/ML VIAL SC SCH ×2 (08:52→20:50)
[2023-01-23] MEDS: Pantoprazole 40 MG VIAL IVP SCH (08:52)
[2023-01-23] MEDS: Carbidopa/Levodopa 25-100 mg Tablet PO SCH ×4 (09:22→20:52)
[2023-01-23] MEDS: Entacapone 200 mg Tablet PO SCH ×4 (09:22→20:54)
[2023-01-23] MEDS: Amantadine HCl 100 mg Capsule PO SCH (09:22)
[2023-01-23] MEDS: Thiamine HCl 200 MG, Admixture Fee 1 EACH in Sodium Chloride 0.9% 50 ML IVPB SCH ×2 (09:27→20:51)
[2023-01-23] MEDS: Hydrocortisone Sod Succ/PF 100 mg/2 ml Vial IVP SCH ×3 (09:27→20:50)
[2023-01-23] MEDS ORDERED: Vecuronium 10 MG VIAL IV SCH (09:30)
[2023-01-23] MEDS ORDERED: Sterile Water 10 ML VIAL FS PRN (09:45)
[2023-01-23 10:01] LABS: Base Excess -4.7 mEq/L (-2 - +2); Chloride (VBG) 123 mmol/L (98-106); Hematocrit-VBG 37 % (42.0-52.0); Hemoglobin (Hb) 12.5 g/dL (12.6-17.4); Potassium (VBG) 4.06 mmol/L (3.70-5.30); Puncture Site Other Site; RapidComm Collect By CBN; Sodium 159.8 mmol/L (133-146); pH (venous) 7.366 (7.32-7.43)
[2023-01-23 10:21] LABS: Magnesium 2.6 mg/dL (1.6-2.6); Phosphorus 4.8 mg/dL (2.3-4.7)
[2023-01-23] MEDS ORDERED: Bisacodyl 10 MG SUPP PR SCH (10:30)
[2023-01-23] MEDS ORDERED: Sodium Chloride 0.9% 1,000 ML IV SCH (10:45)
[2023-01-23] MEDS: Cefepime 1 GM in Sodium Chloride 0.9% 100 ML IVPB SCH (11:17)
[2023-01-23 13:10] LABS: Glucose 196 mg/dL (83-110)
[2023-01-23 13:21] LABS: Sodium 154 mmol/L (136-145)
[2023-01-23] MEDS: Dextrose 5 %-0.45 % NaCl 1,000 ML IV SCH (15:19)
[2023-01-23 16:30] LABS: Anion Gap 21 mmol/L (10-20); Calc. Creatinine Clearance 6 mL/min (70-130); Calcium 7.7 mg/dL (7.8-10.44); Carbon Dioxide 17 mmol/L (23-31); Chloride 120 mmol/L (98-107); Estimated GFR 7; Glucose 174 mg/dL (83-110); Potassium 4.4 mmol/L (3.5-5.1)
[2023-01-23 16:40] LABS: BUN (Urea Nitrogen) 128 mg/dL (8.4-25.7)
[2023-01-23 16:46] LABS: Sodium 154 mmol/L (136-145)
[2023-01-23] MEDS: Phenylephrine 40 MG/NS 250 ML 250 ML IVPB SCH (17:54)
[2023-01-23] MEDS ORDERED: Vancomycin HCl 750 MG in Sodium Chloride 0.9% 250 ML 250 ML IVPB SCH (18:00)
[2023-01-23] MEDS: levETIRAcetam 500 MG/5 ML VIAL SLOW IVP SCH (20:52)
[2023-01-23] MEDS ORDERED: Melatonin 3 MG TAB PO SCH (21:00)
[2023-01-23] MEDS ORDERED: levETIRAcetam in NS 750 MG in Premix Bag 1 BAG IVPB SCH (21:00)
[2023-01-23] MEDS: Acetaminophen 650 MG/20.3 ML UDCUP PO PRN (21:13)
[2023-01-24] MEDS: Dextrose 5 %-0.45 % NaCl 1,000 ML IV SCH ×2 (00:02→05:50)
[2023-01-24] MEDS: NOREPINEPHRINE 8 MG/250 ML-D5W 250 ML IVPB SCH ×3 (00:38→13:42)
[2023-01-24 00:45] LABS: Glucose 277 mg/dL (83-110)
[2023-01-24] MEDS: HumaLOG 300 UNITS/3 ML VIAL SC PRN ×4 (00:51→17:06)
[2023-01-24 01:03] VITALS: TEMP 98
[2023-01-24] MEDS: Vasopressin 20 UNITS in Sodium Chloride 0.9% 50 ML IV SCH ×3 (03:09→18:37)
[2023-01-24] MEDS: Hydrocortisone Sod Succ/PF 100 mg/2 ml Vial IVP SCH ×3 (03:11→15:09)
[2023-01-24 04:16] LABS: Hematocrit 34.6 % (38.8-50.0); Hemoglobin 10.9 g/dL (13.5-17.5); Mean Corpuscular HGB CONC 31.5 g/dL (32.0-36.0); Mean Corpuscular Hemoglobin 30.7 pg (27.0-33.0); Mean Corpuscular Volume 97.5 fl (81.2-95.1); Mean Platelet Volume 11.7 fl (7.4-10.4); Platelet Count 183 10x3/uL (150-450); RBC Distribution Width 13.9 % (11.5-14.5); Red Blood Cell (RBC) Count 3.55 10x6/uL (4.32-5.72); White Blood Cell (WBC) Count 14.8 10x3/uL (3.5-10.5)
[2023-01-24 04:21] LABS: Anion Gap 24 mmol/L (10-20); Calc. Creatinine Clearance 6 mL/min (70-130); Calcium 7.4 mg/dL (7.8-10.44); Carbon Dioxide 13 mmol/L (23-31); Chloride 115 mmol/L (98-107); Estimated GFR 6; Glucose 282 mg/dL (83-110); Potassium 4.5 mmol/L (3.5-5.1); Sodium 147 mmol/L (136-145)
[2023-01-24 04:22] LABS: ALT (SGPT) 62 U/L (8-55); AST (SGOT) 189 U/L (5-34); Albumin 2.6 g/dL (3.4-4.8); Alkaline Phosphatase 89 U/L (40-110); Bilirubin, Direct 0.4 mg/dL (0.1-0.3); Bilirubin, Total 0.7 mg/dL (0.2-1.2); Protein, Total 5.4 g/dL (5.8-8.1)
[2023-01-24 04:32] LABS: BUN (Urea Nitrogen) 127 mg/dL (8.4-25.7)
[2023-01-24 05:16] LABS: Lymphocytes 8 % (21-51); Metamyelocyte 4 % (0-0); Monocytes 2 % (0-10); Myelocyte 3 % (0-0); Reactive Lymphocytes 1 % (0-10)
[2023-01-24 05:18] LABS: Neutrophil 27 % (42-75)
[2023-01-24 05:19] LABS: Band 55 % (5-11)
[2023-01-24] MEDS: metroNIDAZOLE 500 MG in Premix Bag 1 BAG IVPB SCH (05:19)
[2023-01-24 05:20] LABS: Anisocytosis SLIGHT = 6-15 cells (100X) (0-5/hpf); Ovalocytes SLIGHT = 2-5 cells (100X) (0-1/hpf)
[2023-01-24 05:21] LABS: Dohle Bodies MODERATE; Toxic Granulation MODERATE; Vacuoles SLIGHT
[2023-01-24 05:22] LABS: Large Platelets SLIGHT (None Seen)
[2023-01-24 05:23] LABS: MDiff Complete? YES
[2023-01-24] MEDS: Entacapone 200 mg Tablet PO SCH ×3 (08:39→17:45)
[2023-01-24] MEDS: Carbidopa/Levodopa 25-100 mg Tablet PO SCH ×3 (08:39→17:45)
[2023-01-24] MEDS: levETIRAcetam 500 MG/5 ML VIAL SLOW IVP SCH (08:51)
[2023-01-24] MEDS: Heparin 5,000 UNITS/ML VIAL SC SCH (08:52)
[2023-01-24] MEDS ORDERED: Pantoprazole 40 MG VIAL IVP SCH (09:00)
[2023-01-24] MEDS: Amantadine HCl 100 mg Capsule PO SCH (09:33)
[2023-01-24] MEDS: Thiamine HCl 200 MG, Admixture Fee 1 EACH in Sodium Chloride 0.9% 50 ML IVPB SCH (09:34)
[2023-01-24] MEDS: Phenylephrine 40 MG/NS 250 ML 250 ML IVPB SCH ×2 (10:35→16:11)
[2023-01-24] MEDS ORDERED: Sodium Bicarbonate 150 MEQ in Dextrose 5% in Water 1,000 ML IV SCH ×2 (10:45)
[2023-01-24] MEDS ORDERED: Amiodarone In Dextrose 150 MG in Premix Bag 1 BAG IVPB SCH (11:00)
[2023-01-24 11:35] LABS: ALV-art Gradient 160.725 mmHg (0-20); Actual Bicarbonate (HCO3a) 14.7 mEq/L (22-28); Base Excess (BEa) -9.6 mEq/L (-2.0 to +3.0); CO2 Tension 27.1 mmHg (35.0-45.0); Calcium, Ionized (arterial) 0.98 mmol/L (1.12-1.30); Carboxyhemoglobin (COHb) 0.2 gm% (0.0-3.0); Hematocrit-ABG 30 % (42.0-52.0); Hemoglobin (Hb) 10.1 g/dL (14.0-18.0); O2 Tension (PaO2), arterial 90.6 mmHg (> 70.0); Potassium - ABG Lab 4.36 mmol/L (3.70-5.30); Puncture Site LRA; pH, Arterial 7.352 (7.35-7.45)
[2023-01-24] MEDS: Cefepime 1 GM in Sodium Chloride 0.9% 100 ML IVPB SCH (11:43)
[2023-01-24 17:21] LABS: Vancomycin, Random 14.6 ug/mL (See Comment)
[2023-01-24] MEDS ORDERED: Vancomycin HCl 750 MG in Sodium Chloride 0.9% 250 ML 250 ML IVPB SCH (17:30)
[2023-01-24] MEDS ORDERED: metroNIDAZOLE 500 MG in Premix Bag 1 BAG IVPB SCH (18:00)
[2023-01-24 19:56] VITALS: BP 142/80
== END 2023-01-24 20:00 | disposition hospice, inpatient (51) | DRG 871 ==
LOC: CSHERS 09:13 → CSHIMCU 12:04
PROVIDERS: ADMIT Family Medicine; ATTEND Family Medicine
PROC: 0BH17EZ Insertion of Endotracheal Airway into Trachea, Via Natural or Artificial Opening (ICD-10-PCS; principal; 2023-01-22)
PROC: 5A1945Z Respiratory Ventilation, 24-96 Consecutive Hours (ICD-10-PCS; 2023-01-22)
PROC: 4A133R1 Monitoring of Arterial Saturation, Peripheral, Percutaneous Approach (ICD-10-PCS; 2023-01-22)
PROC: 0DH67UZ Insertion of Feeding Device into Stomach, Via Natural or Artificial Opening (ICD-10-PCS; 2023-01-22)
PROC: 3E0G76Z Introduction of Nutritional Substance into Upper GI, Via Natural or Artificial Opening (ICD-10-PCS; 2023-01-22)
PROC: 02HV33Z Insertion of Infusion Device into Superior Vena Cava, Percutaneous Approach (ICD-10-PCS; 2023-01-22)
PROC: 3E043XZ Introduction of Vasopressor into Central Vein, Percutaneous Approach (ICD-10-PCS; 2023-01-22)
PROC: 3E04329 Introduction of Other Anti-infective into Central Vein, Percutaneous Approach (ICD-10-PCS; 2023-01-22)
DX: A41.9 Sepsis, unspecified organism (principal); G93.41 Metabolic encephalopathy; J18.9 Pneumonia, unspecified organism; R65.21 Severe sepsis with septic shock; J96.01 Acute respiratory failure with hypoxia; N17.9 Acute kidney failure, unspecified; E87.0 Hyperosmolality and hypernatremia; E87.20 Acidosis, unspecified; K56.7 Ileus, unspecified; I12.0 Hypertensive chronic kidney disease with stage 5 chronic kidney disease or end stage renal disease; N18.5 Chronic kidney disease, stage 5; G93.1 Anoxic brain damage, not elsewhere classified; E46 Unspecified protein-calorie malnutrition; I24.8 Other forms of acute ischemic heart disease; Z66 Do not resuscitate; Z51.5 Encounter for palliative care; I48.91 Unspecified atrial fibrillation; N40.0 Benign prostatic hyperplasia without lower urinary tract symptoms; K21.9 Gastro-esophageal reflux disease without esophagitis; F32.A Depression, unspecified; D63.1 Anemia in chronic kidney disease; Z96.653 Presence of artificial knee joint, bilateral; E83.51 Hypocalcemia; E86.0 Dehydration; K59.00 Constipation, unspecified; G20 Parkinson's disease; E78.5 Hyperlipidemia, unspecified; Z79.899 Other long term (current) drug therapy; Z79.02 Long term (current) use of antithrombotics/antiplatelets; Z86.73 Personal history of transient ischemic attack (TIA), and cerebral infarction without residual deficits; Z98.41 Cataract extraction status, right eye; Z98.42 Cataract extraction status, left eye; Z68.21 Body mass index [BMI] 21.0-21.9, adult; Z20.822 Contact with and (suspected) exposure to COVID-19
CPT/HCPCS: 31500; 36415; 36416; 36600; 70450; 71045; 74018; 74176; 76770; 80048; 80053; 80076; 80202; 81001; 82306; 82805; 83605; 83735; 84100; 84145; 84300; 84443; 84484; 85025; 85060; 87040; 87070; 87077; 87086; 87149; 87186; 87205; 93005; 93010; 93306; 94002; 94003; 94760; 94762; 96365; 96366; 96368; 96375; C9113; J0283; J0692; J1644; J1720; J1815; J1953; J2060; J3360; J3370; J3411; J3490; J7042; J7050; J7070

== ENCOUNTER 2023-01-24 20:41 | Inpatient (IN) | payer OTHER ==
[2023-01-24 20:58] VITALS: BMI 19.8
[2023-01-24] MEDS ORDERED: Morphine 2 MG/ML VIAL SLOW IVP PRN (21:06)
[2023-01-24] MEDS ORDERED: Lorazepam 2 MG/ML VIAL SLOW IVP PRN (21:09)
[2023-01-24] MEDS ORDERED: Ondansetron PF 4 MG/2 ML Vial IVP PRN (21:10)
[2023-01-24] MEDS: Scopolamine 1.5 mg/72 hour Patch TOP SCH (22:19)
[2023-01-24 22:57] VITALS: BP 151/73; TEMP 98.1
[2023-01-24] MEDS: Morphine 10 MG/ML VIAL SLOW IVP SCH (23:03)
[2023-01-24] MEDS: Lorazepam 2 MG/ML VIAL SLOW IVP SCH (23:58)
[2023-01-25] MEDS: Scopolamine 1.5 mg/72 hour Patch TOP SCH (00:35)
[2023-01-25] MEDS: Morphine 10 MG/ML VIAL SLOW IVP SCH (01:03)
[2023-01-25] MEDS: Lorazepam 2 MG/ML VIAL SLOW IVP SCH (03:08)
== END 2023-01-25 06:25 | disposition expired | DRG 951 ==
LOC: CSHIMCU 20:41
PROVIDERS: ADMIT Family Medicine; ATTEND Family Medicine
DX: Z51.5 Encounter for palliative care (principal); A41.9 Sepsis, unspecified organism; R65.21 Severe sepsis with septic shock; E87.20 Acidosis, unspecified; E87.1 Hypo-osmolality and hyponatremia; N17.9 Acute kidney failure, unspecified; I12.9 Hypertensive chronic kidney disease with stage 1 through stage 4 chronic kidney disease, or unspecified chronic kidney disease; N18.9 Chronic kidney disease, unspecified; N40.0 Benign prostatic hyperplasia without lower urinary tract symptoms; D63.1 Anemia in chronic kidney disease; G20 Parkinson's disease; E78.5 Hyperlipidemia, unspecified; Z98.49 Cataract extraction status, unspecified eye; Z96.659 Presence of unspecified artificial knee joint; Z79.899 Other long term (current) drug therapy; K59.00 Constipation, unspecified
CPT/HCPCS: J2060; J2270; J2272